=== PATIENT | female | born 1960 | race Caucasian/White ===

== ENCOUNTER 2017-10-13 14:08 | Emergency (ER) | payer OTHER, SELFPAY ==
[2017-10-13 14:23] VITALS: BP 182/94; PULSE 84; RESP 18; TEMP 36.7; O2SAT 98; BMI 31.1
--- NOTE | 2017-10-13 14:33 | XR_ITS ---
XR chest portable HISTORY: ITS.REASON: shortness of breath ORDERING PHYSICIAN: Dejon Flannery MD PATIENT AGE: 57 years COMPARISON: None available FINDINGS: The cardiomediastinal silhouette and pulmonary vascularity are within normal limits. The lungs are clear without infiltrates, suspicious nodules, or pleural effusions. No acute bony abnormalities. IMPRESSION: Negative chest, no acute finding
--- NOTE | 2017-10-13 14:43 | CT_ITS ---
CT head/brain wo con HISTORY: Altered mental status, altered level of consciousness, confusion with hypertension ITS.REASON: ams ORDERING PHYSICIAN: Dejon Flannery MD PATIENT AGE: 57 years COMPARISON: None TECHNIQUE: Axial images obtained without contrast. Brain and bone windows reviewed. FINDINGS: No midline shift, mass effect, intracranial hemorrhage, hydrocephalus, or extra-axial fluid collection is evident. The calvarium has an unremarkable appearance. No mastoid effusion. No sinus air-fluid levels.. IMPRESSION: Negative CT head without contrast. No acute finding.
[2017-10-13 14:46] LABS: Microscopic, Urine URINE MICROSCOPIC (MICROSCOPIC)
[2017-10-13 14:47] VITALS: BP 129/88; BP 154/93; BP 163/93; PULSE 68; PULSE 71; PULSE 87
[2017-10-13 14:48] LABS: Appearance,Urine CLEAR (Clear); Bilirubin,Urine Negative (Negative); Blood, Urine 1+ (Negative); Color,Urine YELLOW (Yellow); Glucose,Urine (UA) Negative (Negative); Ketones,Urine Negative (Negative); Leukocyte Esterase,Urine Negative (Negative); Nitrate,Urine Negative (Negative); PH,Urine 6.5 (5.0-8.5); Protein,Urine Negative (Negative); Specific Gravity, Urine <= 1.005 (1.005-1.030); Urobilinogen,Urine 0.2 EU/dl (0.2)
[2017-10-13 14:51] LABS: Basophils # 0.1 K/mm3 (0-0.2); Basophils % 0.4 % (0.1-2.0); Eosinophils # 1.1 K/mm3 (0.0-0.4); Eosinophils % 10.4 % (0.1-12.0); Hematocrit 42.6 % (37.0-47.0); Hemoglobin 13.6 g/dL (12.2-16.2); Lymphocytes # 2.4 K/mm3 (0.7-4.5); Mean Corpuscular HGB Conc 31.9 g/dL (31.8-35.4); Mean Corpuscular Hemoglobin 27.3 pg (27.0-31.2); Mean Corpuscular Volume 85.7 fl (81-99); Monocytes # 0.5 K/mm3 (0.1-1.0); Monocytes % 4.5 % (1.7-9.3); Neutrophils # 6.5 K/mm3 (1.8-7.8); Neutrophils % 61.7 % (37.0-80.0); Platelet Count 239 K/mm3 (142-424); Red Blood Count 4.97 M/mm3 (4.20-5.40); Red Cell Distribution Width 13.6 % (11.5-17.5); White Blood Count 10.5 K/mm3 (4.8-10.8)
[2017-10-13 14:55] LABS: Bacteria,Urine Trace /lpf; Squamous Epithelial Cell,Urine Occasional #/hpf (0-5); WBC,Urine Occasional #/hpf (0-3)
[2017-10-13 15:01] LABS: Alanine Aminotransferase 32 U/L (12-78); Albumin Level 4.1 gm/dL (3.4-5.0); Albumin/Globulin Ratio 1.1 (1.1-1.8); Alkaline Phosphatase 99 U/L (46-116); Anion Gap 11.2 mEq/L (5-15); Aspartate Amino Transferase 25 U/L (15-37); Bilirubin,Total 0.4 mg/dL (0.2-1.0); Blood Urea Nitrogen 15 mg/dL (7-18); Calcium 8.5 mg/dL (8.5-10.1); Carbon Dioxide 27 mmol/L (21.0-32.0); Chloride 106 mmol/L (98-107); Creatinine Clearance Estimated 115 mL/min (0-300); Creatinine,Serum 0.79 mg/dL (0.55-1.02); Estimated Glomerular Filt Rate 75 ml/min (>60); GFR (African American) 91 ML/MIN (>60); Globulin 3.8 gm/dl (1.3-3.2); Glucose 94 mg/dL (74-106); Potassium 4.2 mmoL/L (3.5-5.1); Sodium 140 mmol/L (136-145); Total Protein,Serum 7.9 gm/dL (6.4-8.2)
[2017-10-13 15:14] LABS: CKMB Relative Index 0.8 U/L (0-4.0); Creatine Kinase 132 U/L (26-192); Troponin I < 0.02 ng/ml (0.00-0.06)
--- NOTE | 2017-10-13 17:59 | HMH.EDWEAK ---
ED Disposition Clinical Impression: Orthostatic hypotension Disposition: Home, Self-Care Condition on Discharge: Good Instructions: DI for Orthostatic Hypotension Additional Instructions: Please increase your fluid intake, eat 3 regular meals per day, follow-up with 48 hours for mandatory reevaluation. If not better or unable to see PCP timely, please return promptly to this, same, emergency room for reevaluation. Referrals: Provider,Referral, [Primary Care Provider] - Time of Disposition: 18:00 - Critical Care Critical Care Time: No Attestation: On 10/13/17, the high probability of a clinically significant, sudden or life threatening deterioration of the following system(s) required my full and direct attention, intervention and personal management. The time I documented below is in addition to time spent performing reported procedures but includes the following listed in this critical care notation. Medical Decision Making - Medical Records Medical records reviewed: Yes: I reviewed the patient's medical records. Vital Signs: 10/13/17 14:23 10/13/17 14:47 10/13/17 18:12 Temperature 98.1 F 98.5 F Temperature Source Oral Oral Pulse Rate 82 Pulse Rate [Orthostatic Lying Right Brachial] 71 Pulse Rate [Orthostatic Sitting Right Brachial] 68 Pulse Rate [Orthostatic Standing Right Brachial] 87 Pulse Rate [Right Brachial] 84 Respiratory Rate 18 18 Blood Pressure 127/85 Blood Pressure [Orthostatic Lying Right Arm] 163/93 Blood Pressure [Orthostatic Sitting Right Arm] 154/93 Blood Pressure [Orthostatic Standing Right Arm] 129/88 Blood Pressure [Right Arm] 182/94 Blood Pressure Mean [Right Arm] 123 Blood Pressure Source Automatic Cuff Blood Pressure Source [Right Arm] Automatic Cuff Blood Pressure Position Sitting Blood Pressure Position [Right Arm] Sitting 02 Sat by Pulse Oximetry 98 Oxygen Delivery Method Room Air Room Air - Lab Data Lab results reviewed: Yes: I reviewed the patient's lab results. Lab Results 10/13/17 14:40: WBC 10.5, RBC 4.97, Hgb 13.6, Hct 42.6, MCV 85.7, MCH 27.3, MCHC 31.9, RDW 13.6, Plt Count 239, MPV 8.0, Neut % (Auto) 61.7, Lymph % (Auto) 23.0, [place] % (Auto) 4.5, Eos % (Auto) 10.4, Baso % (Auto) 0.4, Neut # (Auto) 6.5, Lymph # (Auto) 2.4, [place] # (Auto) 0.5, Eos # (Auto) 1.1 H, Baso # (Auto) 0.1 10/13/17 14:40: Sodium 140, Potassium 4.2, Chloride 106, Carbon Dioxide 27, Anion Gap 11.2, BUN 15, Creatinine 0.79, Estimated Creat Clear 115, Estimated GFR 75, Est GFR ( Amer) 91, Glucose 94, Calcium 8.5, Total Bilirubin 0.4, AST 25, ALT 32, Alkaline Phosphatase 99, Total Protein 7.9, Albumin 4.1, Globulin 3.8 H, Albumin/Globulin Ratio 1.1 10/13/17 14:40: Urine Color Yellow, Urine Appearance Clear, Urine pH 6.5, Ur Specific [place] <= 1.005, Urine Protein Negative, Urine Glucose (UA) Negative, Urine Ketones Negative, Urine Blood 1+, Urine Nitrate Negative, Urine Bilirubin Negative, Urine Urobilinogen 0.2, Ur Leukocyte Esterase Negative, Urine RBC 3-5, Urine WBC Occasional, Ur Squamous Epith Cells Occasional, Urine Bacteria Trace 10/13/17 14:40: Total Creatine Kinase 132, CK-MB (CK-2) 1.0, CK-MB (CK-2) Rel Index 0.8, Troponin I < 0.02 Result diagrams: 10/13/17 14:40 10/13/17 14:40 Orders (Tests/Meds): ED MEDICATIONS Discontinued Medications Generic Name Dose Route Start Last Admin Trade Name Freq PRN Reason Stop Dose Admin Sodium Chloride 1,000 mls @ 999 mls/hr 10/13/17 14:45 10/13/17 14:44 Sod Chloride 0.9% 1000ml Bag IV 10/13/17 15:45 999 mls/hr .Q1H1M JHONATAN Administration - Radiology Data #1 Image(s): Chest Image Reviewed: Yes I reviewed the patient's radiology results, Yes I reviewed the patient's radiology image, Yes I have reviewed radiologist's interpretation Preliminary Findings: Normal/NAD - ECG Data Tracing #1 I reviewed this ECG and interpreted as documented below: ECG normal with no acute: arrhythm
[2017-10-13 18:12] VITALS: BP 127/85; PULSE 82; RESP 18; TEMP 36.9; O2SAT 98
== END 2017-10-13 18:12 | disposition home or self-care (01) ==
PROVIDERS: Emergency Provider Emergency Medicine; Family Provider Family Medicine
DX: I95.1 Orthostatic hypotension (principal); R07.89 Other chest pain; R53.1 Weakness
CPT/HCPCS: 70450; 71045; 80053; 81001; 82550; 82553; 84484; 85025; 93005; 96365; 99283

== ENCOUNTER → 2017-10-21 08:43 | Outpatient (CLI) | payer OTHER, SELFPAY ==
--- NOTE | 2017-10-21 08:50 | US_ITS ---
US abdomen limited: INDICATION: Right upper quadrant pain with reflux and vomiting ITS.REASON: RT SIDED CHEST PAIN ORDERING PHYSICIAN: Mikal Saucedo MD PATIENT AGE: 57 years FINDINGS: PANCREAS: Unremarkable. No obvious mass or abnormal fluid collection. No ductal dilatation LIVER: There is a 1.4 cm hyperechoic lesion along the posterior aspect of the right hepatic lobe RIGHT KIDNEY: Unremarkable. Normal size and echogenicity. No hydronephrosis GALLBLADDER: No gallstones, gallbladder wall thickening, pericholecystic fluid, or biliary dilatation. IMPRESSION: 1. Negative gallbladder ultrasound. 2. Nonspecific 14 mm hyperechoic lesion of the right lobe of the liver. This may be better evaluated with CT without and with contrast.
== END ==
PROVIDERS: Family Provider Family Medicine; Visit Provider Family Medicine
DX: R07.9 Chest pain, unspecified (principal)
CPT/HCPCS: 76705

== ENCOUNTER → 2018-01-23 14:05 | Outpatient (CLI) | payer OTHER, SELFPAY ==
--- NOTE | 2018-01-23 14:06 | US_ITS ---
US breast LT complete Ordering Physician: Michael Martinez MD Patient Age: 57 years: Female HISTORY: ITS.REASON: f/u US of Left Breast Follow up ill-defined area left breast on previous ultrasound TECHNIQUE: Ultrasound left breast. Axillary survey COMPARISON :Previous ultrasound left breast 04/15/2017.. COMPLETE. LEFT BREAST: ULTRASOUND with axillary survey Survey of the entire breast was performed and shows areas of concern. Attention is directed to the 12 o'clock position. No unique features are seen here only. On the area previously questioned appears to be merely some slightly hypoechoic glandular tissue with no dominant mass nor significant cyst evident. Only a tiny thin cyst measuring measured 4.6 mm length mm is seen at 12 o'clock position otherwise. Not of concern . IMPRESSION: Today's ultrasound reveals no significant findings with no areas of concern. Recommend patient resume annual mammography scheduled with bilateral mammogram in 6 months to. . Suggest follow-up left breast ultrasound in 6 months to again evaluate the area previously questioned.. . BI-RADS Category: 2 Benign Finding(s) RECOMMENDED FOLLOW-UP: 6M - 6 MONTH FOLLOW-UP (A letter has been sent to the patient regarding results of the study.) Knee
== END ==
PROVIDERS: Family Provider Family Medicine; PCP Family Medicine; Visit Provider Nurse Practitioner Obstetrics & Gynecology
DX: R92.2 Inconclusive mammogram (principal)
CPT/HCPCS: 76641

== ENCOUNTER → 2018-01-28 10:06 | Outpatient (CLI) | payer OTHER, SELFPAY ==
[2018-01-28 11:39] LABS: Blood Urea Nitrogen 16 mg/dL (7-18); Creatinine,Serum 0.74 mg/dL (0.55-1.02); Estimated Glomerular Filt Rate 81 ml/min (>60); GFR (African American) 98 ML/MIN (>60)
== END ==
PROVIDERS: Visit Provider Family Medicine
DX: D37.6 Neoplasm of uncertain behavior of liver, gallbladder and bile ducts (principal)
CPT/HCPCS: 36415; 82565; 84520

== ENCOUNTER → 2018-01-30 10:03 | Outpatient (CLI) | payer OTHER, SELFPAY ==
--- NOTE | 2018-01-30 10:06 | CT_ITS ---
CT abdomen wo/w con Ordering Physician: Mikal Saucedo MD Patient Age: 57 years: Female HISTORY: ITS.REASON: NEOPLASM OF LIVER . Right upper quadrant pain. Hyperechoic area seen at posterior liver on recent ultrasound TECHNIQUE: Helical CT scanning performed abdomen only, pre and post 75 cc Isovue-370 IV contrast . Postcontrast scanning performed at 30 & 60 seconds post injection, with then 5 minute delayed after IV contrast administration.Oral contrast also utilized. Axial sagittal and coronal reconstructions performed on CT workstation. All CT scans at this facility used one or more dose reduction techniques , viz: automatic exposure control, ma/Kv adjustment per patient's size, (including targeted exam where dose matched to the indication; i.e. head); or iterative reconstruction technique COMPARISON : Ultrasound abdomen 10/21/2017 FINDINGS LIVER. There is a 14 mm height x1.4 mm in AP x 12 mm transverse ovoid low-density area at the medial spleen, just along margin of the IVC; at junction of caudate lobe & right lobe. This is best seen on the venous phase in all 3 planes. (Axial slice 27. Coronal 42 sagittal 41.) Only very minor marginal vascularity about its margin on the early phase images.. Also This area then appears to fills & becomes less evident, nearly isodense, on the 5 minute delayed image set.- These observations Consistent with benign hemangioma as well as ultrasound appearance . Thus CT and ultrasound findings strongly support benign hemangioma of the liver.-, The most common incidental lesion in middle-aged females. Spleen satisfactory. Pancreas unremarkable. No biliary ductal dilatation. Gallbladder unremarkable Adrenals unremarkable. Kidneys appear satisfactory. . Ureters unremarkable. No retroperitoneal findings Stomach. Generous wall thickness throughout the stomach. Upper normal thickness stomach most likely reflecting lack of distention. Only the abdomen imaged thus do not visualize the lower portions of bowel. Visualized Small bowel unremarkable. . Moderate stool at the right and transverse colon.. No bowel dilatation or obstruction. Oral contrast is moved through the small bowel into the right and transverse colon. Lung bases are clear. Heart normal size. Prominent focal spur off the posterior aspect of T12/L1. This is seen midline and to the left and does appear to abut, and mild efface the lower thoracic cord to the left. IMPRESSION: 1. CT & ultrasound findings are consistent with a Small 1.4 cm benign hemangioma at the medial aspect the liver.. Benign incidental feature. Perhaps Consider follow-up ultrasound in 6 -8 months to further ensure relative stability, particularly if RUQ symptoms persist 2. Slight generous wall thickness at stomach most likely reflecting lack of distention..
== END ==
PROVIDERS: Family Provider Family Medicine; PCP Family Medicine; Visit Provider Family Medicine
DX: D37.6 Neoplasm of uncertain behavior of liver, gallbladder and bile ducts (principal)
CPT/HCPCS: 74170; Q9967

== ENCOUNTER → 2019-03-22 10:27 | Outpatient (CLI) | payer OTHER, SELFPAY ==
--- NOTE | 2019-03-22 10:33 | XR_ITS ---
XR foot wt bearing LT 3V HISTORY: ITS.REASON: pain, mass on third toe ORDERING PHYSICIAN: Elen Bryson DPM PATIENT AGE: 59 years COMPARISON: None FINDINGS: There is moderate hallux valgus with mild osteoarthritic change of the first MTP joint with hypertrophy of the distal aspect of the first metatarsal and overlying soft tissues. No fracture or dislocation. No other significant anomalies. IMPRESSION: Hallux valgus with osteoarthritis of the first MTP joint and bunion formation
== END ==
PROVIDERS: PCP Family Medicine; Visit Provider Podiatrist
DX: M79.672 Pain in left foot (principal)
CPT/HCPCS: 73630

== ENCOUNTER → 2019-04-09 10:38 | Outpatient (CLI) | payer OTHER, SELFPAY ==
[2019-04-09 10:55] LABS: Blood Urea Nitrogen 18 mg/dL (7-18); Creatinine,Serum 0.94 mg/dL (0.55-1.02); Estimated Glomerular Filt Rate 61 ml/min (>60); GFR (African American) 74 ML/MIN (>60)
--- NOTE | 2019-04-09 10:55 | MR_ITS ---
MR foot LT wo/w con CLINICAL INDICATION: ITS.REASON: soft tissue mass third toe, neoplasm of uncertain behavior of scan of the toe, pain ORDERING PHYSICIAN: Elen Bryson DPM PATIENT AGE: 59 years Comparison: 03/22/2019 TECHNIQUE: Multiplanar multiecho sequences are performed without and with gadolinium enhancement. Additional thin section pre- and postenhanced sequences performed FINDINGS: Moderate hallux valgus with osteoarthritic change of the first MTP joint and bunion formation at the distal aspect of the first metatarsal. There is lateral displacement of the flexor hallucis longus tendon. Subarticular cystic changes are present at the distal aspect of the first metatarsal A marker is placed over the dorsal aspect of the distal phalanx of the third digit to yumi the area of clinical concern. This was removed on the post enhanced images to avoid causing any underlying artifact. No obvious soft tissue mass evident. No bone marrow edema or fluid collection. No abnormal enhancement. IMPRESSION: 1. No obvious soft tissue mass identified regarding the third digit. No abnormal fluid collections or evidence of osteomyelitis. 2. Hallux valgus with osteoarthritis and bunion formation at the first MTP
== END ==
PROVIDERS: Visit Provider Podiatrist
DX: D48.5 Neoplasm of uncertain behavior of skin (principal); M79.675 Pain in left toe(s)
CPT/HCPCS: 36415; 73720; 82565; 84520; A9576

== ENCOUNTER → 2020-04-05 08:03 | Outpatient (CLI) | payer OTHER, SELFPAY ==
[2020-04-05 12:23] LABS: Coronavirus 19 IgG Antibody Negative (Negative); Coronavirus 19 IgM Antibody Negative (Negative)
== END ==
PROVIDERS: Visit Provider Internal Medicine Gastroenterology
DX: Z03.818 Encounter for observation for suspected exposure to other biological agents ruled out (principal)
CPT/HCPCS: 36415; 86328

== ENCOUNTER 2020-04-07 10:52 | Day surgery (SDC) | payer OTHER, SELFPAY ==
[2020-04-03 14:35] VITALS: BMI 32.2
[2020-04-07] VITALS (7 sets, daily range): BP systolic 122–170; BP diastolic 75–84; PULSE 61–77; RESP 18; TEMP 36.3–36.8; O2SAT 96–98
--- NOTE | 2020-04-07 12:35 | HMH.ANESCL ---
[facility] Anesthesia Checklist - Patient Identification Patient Identification: Arm Band - Structural Data Admitted From: Home Planned Operative Procedure/s: colonoscopy Consent for Planned Operative Procedure(s) Verified: Yes Verified Documents: Surgical Consent, History and Physical - NPO Status Verified Time NPO: 00:00 - Additional verifications Anesthesia Reactions: No - Airway Assessment C-Spine Mobility Assessed: Yes (mp2) TMJ Mobility Assessed: Yes Dentition: Good Dentition - Neurological Assessment Level of Consciousness: Awake, Alert - Anesthesia Plan Anesthesia Risk discussed: Yes Anesthesia Plan: Verified ASA Class: II Anesthesia Type: MAC [facility] History I have reviewed the patient's past medical history: Yes Medical History: Reports:: Gastroesophageal Reflux Disease(GERD) Denies:: Cancer, Diabetes Mellitus Type 1, Diabetes Mellitus Type 2, Internal Pacemaker, MRSA, Seizures *Have you ever received a pneumonia vaccine?: No *Have you received a flu vaccine this season?: Yes Anesthesia experience/problems:: nac Other Surgeries: Yes: Colonoscopy, Diagnostic Lap. No: Pacemaker Amputation: No Fractures: No - *Social History Last grade of school completed: High school graduate Smoking Status: Never smoker Alcohol Intake: never Substance Use Type: denies use *Occupational Status:: employed Housing: house Household Members: spouse *Travel in the last 8 weeks: None Family Hx:: Cancer, Coronary Artery Disease, Diabetes, Heart Attack, Hyperlipidemia, Hypertension, Thyroid Disorder
--- NOTE | 2020-04-07 12:52 | HMH.PROC ---
[facility] Procedure Note Procedure Note:: Colonoscopy Procedure Report: Colonoscopy with cold snare polypectomy Endoscopist: Rashad Grier II, MD Referring physician: Mikal Saucedo MD Date of Procedure: April 07, 2020 Equipment: Olympus 180 variable stiffness pediatric colonoscope Sedation: MAC sedation Indication: Mrs. Weller is a 60-year-old female who is here for follow-up screening/surveillance colonoscopy secondary to a personal history of colon polyps. She did have a colonoscopy 9 years ago and had 2 polyp (adenomatous polyps) and was recommended to have repeat surveillance in 5 years. The patient does state that her paternal aunt had colon cancer in her late 60s. The patient does have intermittent but infrequent blood from internal hemorrhoids mostly on the tissue. She reports no abdominal pain, weight loss or change in bowel habits. Procedure: Prior to the procedure, a history and physical exam was performed, and patient's medications and allergies were reviewed. The risks, benefits and alternatives of the sedation and procedure were discussed with the patient. All questions were answered and informed consent was obtained. The patient was brought to the procedure room. Patient identification and proposed procedure were verified by the physician and the nurse. The patient was placed in a left lateral decubitus position and the scope was passed under direct vision. Throughout the procedure, the patient's blood pressure, pulse, and oxygen saturations were monitored continuously. The colonoscopy was accomplished without difficulty. The patient tolerated the procedure well. Findings: On digital rectal examination there was normal rectal tone. There were no external hemorrhoids. The colonoscope was introduced through the anal canal to the rectum and advanced to the cecum. The ileocecal valve and appendiceal orifice were identified. The scope was advanced a short distance into the ileum which appeared grossly normal. The scope was then withdrawn into the colon. There were 2 polyps in the cecum (3 and 5 mm), 2 polyps in the descending (3 and 7 mm) and one polyp in the sigmoid (4 mm). All of these 5 polyps were removed via cold snare polypectomy. There were a few scattered diverticuli throughout the descending and sigmoid colon (LEFT colon). The rectum itself was normal. Upon retroflexion within the rectum there were grade 1-2 internal hemorrhoids. The preparation was excellent throughout with [place] Preparation Score of 9. The cecal time was 12 minutes. Impression: 1. Colonic polyps x5 2. Mild left-sided diverticulosis 3. Grade 1-2 internal hemorrhoids Plan: I will follow up the polyp pathology and recommend repeat colonoscopy again in 5 years based upon the polyp histology. I would encourage fiber supplementation on a long-term daily maintenance basis.
== END 2020-04-07 13:48 | disposition home or self-care (01) ==
LOC: OUTP 10:53
PROVIDERS: PCP Family Medicine; Visit Provider Internal Medicine Gastroenterology
PROC: 0DJD8ZZ Inspection of Lower Intestinal Tract, Via Natural or Artificial Opening Endoscopic (ICD-10-PCS; CPT 45378; principal; 2020-04-07 12:00)
DX: Z12.11 Encounter for screening for malignant neoplasm of colon (principal); Z86.010 Personal history of colon polyps; K63.5 Polyp of colon; K57.30 Diverticulosis of large intestine without perforation or abscess without bleeding; K64.0 First degree hemorrhoids; K21.9 Gastro-esophageal reflux disease without esophagitis; Z80.9 Family history of malignant neoplasm, unspecified; Z83.3 Family history of diabetes mellitus; Z83.438 Family history of other disorder of lipoprotein metabolism and other lipidemia; Z82.49 Family history of ischemic heart disease and other diseases of the circulatory system; Z83.49 Family history of other endocrine, nutritional and metabolic diseases; Z79.899 Other long term (current) drug therapy
CPT/HCPCS: 45385

== ENCOUNTER 2020-05-25 13:36 | Emergency (ER) | payer OTHER, SELFPAY ==
--- NOTE | 2020-05-25 13:44 | XR_ITS ---
PROCEDURE: XR WRIST LT MIN 3V CLINICAL INDICATION: wrist pain due to picking up heavy object at home COMPARISON: No exams were available for comparison FINDINGS: There are mild osteoarthritic changes at the 1st metacarpal-carpal joint. A small calcific density is present along the dorsal aspect of the 1st metacarpal-carpal joint and could be related to some periarticular ossification or an avulsion injury or small spur. No other significant anomalies are evident. IMPRESSION: Small calcific density at the 1st metacarpal-carpal joint as described above with minimal osteoarthritic change. Dictated by: Chaz Ramos MD 05/25/2020 14:59 Chaz Ramos MD in [place] 05/25/2020 14:59
[2020-05-25 13:59] VITALS: BP 166/90; PULSE 76; RESP 16; TEMP 36.7; O2SAT 96; BMI 32.6
[2020-05-25 14:07] VITALS: BP 166/90; PULSE 76; RESP 16; TEMP 36.7; O2SAT 96
--- NOTE | 2020-05-25 14:09 | HMH.EDUTC ---
[facility] Disposition Clinical Impression: Wrist sprain Qualifiers: Encounter type: initial encounter Laterality: left Qualified Code(s): S63.502A - Unspecified sprain of left wrist, initial encounter Disposition: Home, Self-Care Condition on Discharge: Good Instructions: Wrist Sprain, DI for Wrist Sprain, How To Perform RICE (Rest, Ice, Compress, Elevate) Additional Instructions: *RICE, Rest the extremity, Ice 15-20 minutes 3-4 times daily, Compress- wear the jaleel wrap as discussed as much as possible to help reduce swelling and pain, Elevate the extremity when at rest *Jaleel wrap/Wrist brace is for support and help control swelling, use it except in the shower. Be sure that is not to tight but not to loose either *Elevate when resting *Ibuprofen every 6-8 hours as needed for pain an inflammation. If need something more can take Tylenol in between doses of Ibuprofen to help Immediately follow up with your family doctor for new or worsening of symptoms, or no noticeable improvement over the next 3-5 days Follow up with Family Doctor if you continue to have pain and discomfort Return if needed Call back to the [facility] later this evening to see if the Radiologist has read your xray and the result Straight to ER if any life threatening symptoms Referrals: Mikal Saucedo MD [Primary Care Provider] - As needed Time of Disposition: 14:11 Medical Decision Making - Pedro Inquiry Pt receiving controlled substance: No Pedro was queried for this patient: No Vital Signs: 05/25/20 13:59 05/25/20 14:07 Temperature 98.0 F 98.0 F Temperature Source Oral Pulse Rate 76 Pulse Rate [Left] 76 Respiratory Rate 16 16 Blood Pressure 166/90 H Blood Pressure [Right Arm] 166/90 H Blood Pressure Mean [Right Arm] 115 Blood Pressure Source [Right Arm] Automatic Cuff Blood Pressure Position [Right Arm] Standing 02 Sat by Pulse Oximetry 96 Oxygen Delivery Method Room Air - Radiology Data #1 Image(s): Wrist Image Reviewed: Yes I reviewed the patient's radiology image Preliminary Findings: No Fracture Seen [facility] HPI - General Stated complaint: lt wrist pain, ao 05/25/20 Time Seen by Provider: 05/25/20 14:00 Mode of Arrival: Ambulatory Source of Information: Patient Limitations: No Limitations Description of Symptoms (Recalled from Triage Doc. by RN): Pt c/o of left wrist pain. Pt was cleaning out the basement and picked something up and she heard a pop. HEENT Symptoms (Recalled from RN notes): No Resp Symptoms (Recalled from RN notes): No Skin Symptoms (Recalled from RN notes): Yes MS Symptoms (Recalled from RN notes): No Functional Status (Recalled from RN notes): stable - History of Present Illness Provider Complaint: Patient states that she was cleaning out her basement with a shovel and dust olivera and when she lifted it over to dump it in the garbage she felt a sharp pain in her left wrist States that ever since she has been having pain and tenderness ever since - Related Data Home Medications Medication Instructions Recorded Confirmed pantoprazole 40 mg tablet,delayed 40 mg PO DAILY #30 tab 03/22/19 04/07/20 release Triamcinolone Acetonide [Nasacort] 16.9 ml NS DAILY 04/03/20 04/07/20 Allergies Allergy/AdvReac Type Severity Reaction Status Date / Time No Known Allergies Allergy Verified 05/25/20 14:14 - Worker's Comp Is this a Worker's Comp case?: No Is this an H Worker's Comp?: No Is this a [place] Worker's Comp?: No [facility] History - Hepatitis A Screen Drug use history?: No High risk sexual behaviors?: No History of sexually transmitted infection?: No Currently employed?: No Childcare worker?: No Do you have indoor plumbing?: Yes Do you have electricity?: Yes Attestation statement:: This patient has been screened for Hepatitis A risk factors. I have reviewed the patient's past medical history: Yes Medical History: Reports:: Gastroesophageal Reflux Disease(GERD) Denies:: Cancer, Diabetes M
== END 2020-05-25 14:14 | disposition home or self-care (01) ==
PROVIDERS: Emergency Provider Nurse Practitioner; PCP Family Medicine
DX: S63.502A Unspecified sprain of left wrist, initial encounter (principal); X50.0XXA Overexertion from strenuous movement or load, initial encounter; Y92.019 Unspecified place in single-family (private) house as the place of occurrence of the external cause; K21.9 Gastro-esophageal reflux disease without esophagitis; Z79.899 Other long term (current) drug therapy
CPT/HCPCS: 73110; 99201

== ENCOUNTER 2020-08-30 10:44 | Emergency (ER) | payer OTHER, SELFPAY ==
[2020-08-30 10:46] VITALS: BP 168/84; PULSE 80; RESP 18; TEMP 37.2; O2SAT 94; BMI 30.7
[2020-08-30 11:04] VITALS: BMI 30.7
--- NOTE | 2020-08-30 11:05 | XR_ITS ---
PROCEDURE: XR CHEST PORTABLE CLINICAL HISTORY: covid with cough COMPARISON: CR CXR1VP XR chest portable from 10/13/2017 FINDINGS: This is a somewhat poor inspiratory effort however there are bilateral perihilar ill-defined opacities slightly more diffuse left side than right. The upper lung bennett are clear, the lung bases are grossly clear with somewhat poorly evaluated due to poor inspiration. Cardiac size is normal vascularity is normal and there is no pleural fluid. IMPRESSION: Bilateral somewhat ill-defined opacities with somewhat of a ground-glass appearance left-side findings are certainly consistent Covid pneumonia Dictated by: Dr. Dejon Garces MD 08/30/2020 11:30 Dr. Dejon Garces MD in [place] 08/30/2020 11:30
--- NOTE | 2020-08-30 11:12 | HMH.EDGENADL ---
ED Disposition Clinical Impression: COVID-19 Pneumonia Qualifiers: Pneumonia type: due to unspecified organism Laterality: bilateral Lung location: unspecified part of lung Qualified Code(s): J18.9 - Pneumonia, unspecified organism Disposition: Home, Self-Care Condition on Discharge: Good Instructions: Pneumonia-Adult Additional Instructions: Follow-up with PCP. Take antibiotics as prescribed. Take Tylenol/ibuprofen as needed for pain or fevers. Advised to return to emergency department if you start having worsening of difficulty breathing despite treatment. Prescriptions: Azithromycin [Z-Yoel 250mg Tab*] 250 mg PO UD DOSE PK #6 tab Transmission Status: Pending to [facility] [employer] Referrals: Mikal Saucedo MD [Primary Care Provider] - - Critical Care Critical Care Time: No Attestation: On , the high probability of a clinically significant, sudden or life threatening deterioration of the following system(s) required my full and direct attention, intervention and personal management. The time I documented below is in addition to time spent performing reported procedures but includes the following listed in this critical care notation. Medical Decision Making - Medical Records Medical records reviewed: Yes: I reviewed the patient's medical records. - Pedro Inquiry Pt receiving controlled substance: No Vital Signs: 08/30/20 10:46 08/30/20 11:16 Temperature 99.0 F Temperature Source Oral Pulse Rate [Right] 80 80 Respiratory Rate 18 22 Blood Pressure [Right Arm] 168/84 H 150/90 H Blood Pressure Mean [Right Arm] 112 110 Blood Pressure Source [Right Arm] Automatic Cuff Automatic Cuff Blood Pressure Position [Right Arm] Sitting Sitting 02 Sat by Pulse Oximetry 94 L 95 Oxygen Delivery Method Room Air - Lab Data Lab Results 08/30/20 10:50: WBC 4.9, RBC 4.84, Hgb 13.4, Hct 40.6, MCV 83.9, MCH 27.6, MCHC 32.9, RDW 14.7, Plt Count 167, MPV 7.9, Neut % (Auto) 77.3, Lymph % (Auto) 18.7, [place] % (Auto) 3.2, Eos % (Auto) 0.6, Baso % (Auto) 0.2, Neut # (Auto) 3.8, Lymph # (Auto) 0.9, [place] # (Auto) 0.2, Eos # (Auto) 0.0, Baso # (Auto) 0.0 08/30/20 10:50: Sodium 138, Potassium 3.7, Chloride 101, Carbon Dioxide 30, Anion Gap 10.7, BUN 11, Creatinine 0.70, Estimated Creat Clear 124, Estimated GFR 85, Est GFR ( Amer) 103, Glucose 106 H, Calcium 8.6, Total Bilirubin 0.6, AST 34, ALT 35, Alkaline Phosphatase 85, Total Protein 7.9, Albumin 4.3, Globulin 3.6 H, Albumin/Globulin Ratio 1.2 08/30/20 10:50: D-Dimer 0.85 08/30/20 10:50: Procalcitonin 0.077 08/30/20 11:05: Lactate 0.7 Result diagrams: 08/30/20 10:50 08/30/20 10:50 Orders (Tests/Meds): ORDERS Category Date Time Status Covid-19 IgG/IgM ([facility]) Stat Lab 08/30/20 10:50 Received Blood Culture Stat Micro 08/30/20 10:50 Received Medical Decision Narrative: 60-year-old female who presents to the emergency department for evaluation of shortness of air. Hemodynamically stable and nontoxic in appearance upon arrival. Maintaining oxygen saturations greater than 93% on room air. Patient recently diagnosed with COVID-19 8 days ago, but has been significantly worsening in symptoms over the past 2 days. Differential diagnosis includes but is not limited to worsening viral illness, pneumonia, pulmonary embolism, pneumothorax, less likely myocardial infarction. Obtained including CBC, CMP, procalcitonin, D-dimer, and lactate. Obtained EKG which was personally reviewed and showed no acute ST elevation, ST depression, or T wave inversions concerning for ACS at this time with normal sinus rhythm. Obtained chest x-ray which was personally reviewed and showed bilateral patchy opacifications concerning for Covid pneumonia versus atypical pneumonia. Labs reviewed and within normal limits with no significant leukocytosis and negative procalcitonin. Negative D-dimer. Normal lactate. Provided patient with prescription for azithromycin to start as an outpat
[2020-08-30 11:16] VITALS: BP 150/90; PULSE 80; RESP 22; O2SAT 95
--- NOTE | 2020-08-30 11:23 | ECG_ITS ---
APPROVED REPORT Exam: Resting ECG HR:78 bpm ECG Measurements Heart Rate 78 AXES WY 166 P 39 QRSd 90 QRS -22 QT 386 T 25 QTc 440 Conclusion Normal sinus rhythm Normal ECG Electronically signed by : Landon Qiu, 08/31/2020 14:29:21
[2020-08-30 11:33] LABS: Basophils % 0.2 % (0.1-2.0); Eosinophils % 0.6 % (0.1-12.0); Hematocrit 40.6 % (37.0-47.0); Hemoglobin 13.4 g/dL (12.2-16.2); Lymphocytes # 0.9 K/mm3 (0.7-4.5); Lymphocytes % 18.7 % (10-50); Mean Corpuscular HGB Conc 32.9 g/dL (31.8-35.4); Mean Corpuscular Hemoglobin 27.6 pg (27.0-31.2); Mean Corpuscular Volume 83.9 fl (81-99); Mean Platelet Volume 7.9 fl (7.4-10.4); Monocytes # 0.2 K/mm3 (0.1-1.0); Monocytes % 3.2 % (1.7-9.3); Neutrophils # 3.8 K/mm3 (1.8-7.8); Neutrophils % 77.3 % (37.0-80.0); Platelet Count 167 K/mm3 (142-424); Red Blood Count 4.84 M/mm3 (4.20-5.40); Red Cell Distribution Width 14.7 % (11.5-17.5); White Blood Count 4.9 K/mm3 (4.8-10.8)
[2020-08-30 11:34] LABS: Alanine Aminotransferase 35 U/L (12-78); Albumin Level 4.3 g/dl (3.5-5.0); Albumin/Globulin Ratio 1.2 (1.1-1.8); Alkaline Phosphatase 85 U/L (38-126); Anion Gap 10.7 mEq/L (5-15); Aspartate Amino Transferase 34 U/L (14-36); Bilirubin,Total 0.6 mg/dl (0.2-1.3); Blood Urea Nitrogen 11 mg/dl (7-17); Calcium 8.6 mg/dl (8.4-10.2); Carbon Dioxide 30 mmol/L (22.0-30.0); Chloride 101 mmol/L (98-107); Creatinine Clearance Estimated 124 mL/min (50-200); Estimated Glomerular Filt Rate 85 ml/min (>60); GFR (African American) 103 ML/MIN (>60); Globulin 3.6 g/dL (1.3-3.2); Glucose 106 mg/dl (74-100); Potassium 3.7 mmoL/L (3.5-5.1); Sodium 138 mmol/L (136-145); Total Protein,Serum 7.9 g/dl (6.3-8.2)
[2020-08-30 11:38] LABS: Lactic Acid 0.7 mmol/L (0.7-2.1)
[2020-08-30 11:38] LABS: D-Dimer 0.85 ug/mL (0.15-8.0)
[2020-08-30 11:51] LABS: Procalcitonin 0.077 ng/mL (0.0-2.0)
[2020-08-30 12:38] VITALS: BP 166/93; PULSE 74; RESP 20; TEMP 37.3; O2SAT 91
[2020-08-30 13:07] LABS: Coronavirus 19 IgG Antibody Negative (Negative); Coronavirus 19 IgM Antibody Negative (Negative)
== END 2020-08-30 12:41 | disposition home or self-care (01) ==
PROVIDERS: Emergency Provider Emergency Medicine; PCP Family Medicine
DX: J12.81 Pneumonia due to SARS-associated coronavirus (principal); K21.9 Gastro-esophageal reflux disease without esophagitis; Z79.899 Other long term (current) drug therapy
CPT/HCPCS: 71045; 80053; 83605; 84145; 85025; 85378; 86328; 87040; 93005; 99283

== ENCOUNTER 2020-09-01 17:23 | Inpatient (IN) | payer OTHER, SELFPAY ==
--- NOTE | 2020-09-01 17:28 | XR_ITS ---
PROCEDURE: XR CHEST PORTABLE CLINICAL HISTORY: SOB, covid COMPARISON: CR [id number] XR chest portable from 10/13/2017 CR XR CHEST PORTABLE from 08/30/2020 FINDINGS: This is a poor inspiration. Minimal ill-defined bilateral perihilar opacities are seen but showing interval improvement from the previous study. The upper lung bennett remain clear. Cardiac size is likely normal considering the poor inspiration. There is no obvious pleural fluid on either side. IMPRESSION: Interval improvement with resolving bilateral ill-defined perihilar infiltrates Dictated by: Dr. Dejon Garces MD 09/02/2020 08:01 Dr. Dejon Garces MD in [place] 09/02/2020 08:01
[2020-09-01 17:35] VITALS: BP 135/78; PULSE 95; RESP 18; TEMP 37.6; O2SAT 91; BMI 30.9
[2020-09-01 18:34] LABS: Basophils % 0.3 % (0.1-2.0); Eosinophils % 0.4 % (0.1-12.0); Hematocrit 38.9 % (37.0-47.0); Hemoglobin 12.7 g/dL (12.2-16.2); Lymphocytes % 12.8 % (10-50); Mean Corpuscular HGB Conc 32.6 g/dL (31.8-35.4); Mean Corpuscular Hemoglobin 26.8 pg (27.0-31.2); Mean Corpuscular Volume 82.3 fl (81-99); Monocytes # 0.4 K/mm3 (0.1-1.0); Monocytes % 4.8 % (1.7-9.3); Neutrophils # 6.2 K/mm3 (1.8-7.8); Neutrophils % 81.6 % (37.0-80.0); Platelet Count 202 K/mm3 (142-424); Red Blood Count 4.73 M/mm3 (4.20-5.40); Red Cell Distribution Width 14.6 % (11.5-17.5); White Blood Count 7.6 K/mm3 (4.8-10.8)
[2020-09-01 18:51] LABS: Alanine Aminotransferase 28 U/L (12-78); Albumin/Globulin Ratio 1.2 (1.1-1.8); Alkaline Phosphatase 75 U/L (38-126); Anion Gap 11.8 mEq/L (5-15); Aspartate Amino Transferase 34 U/L (14-36); Bilirubin,Total 0.9 mg/dl (0.2-1.3); Blood Urea Nitrogen 17 mg/dl (7-17); Calcium 8.5 mg/dl (8.4-10.2); Carbon Dioxide 26 mmol/L (22.0-30.0); Chloride 101 mmol/L (98-107); Creatinine Clearance Estimated 145 mL/min (50-200); Estimated Glomerular Filt Rate 102 ml/min (>60); GFR (African American) 123 ML/MIN (>60); Globulin 3.4 g/dL (1.3-3.2); Glucose 101 mg/dl (74-100); Potassium 3.8 mmoL/L (3.5-5.1); Sodium 135 mmol/L (136-145); Total Protein,Serum 7.4 g/dl (6.3-8.2)
--- NOTE | 2020-09-01 19:08 | PC.NURSE ---
dr dylon marie
--- NOTE | 2020-09-01 19:08 | HMH.EDPSOB ---
ED Disposition Clinical Impression: COVID-19, Shortness of breath Disposition: Admitted as Observation Condition on Discharge: Good Referrals: Mikal Saucedo MD [Primary Care Provider] - - Critical Care Critical Care Time: No Attestation: On 09/01/20, the high probability of a clinically significant, sudden or life threatening deterioration of the following system(s) required my full and direct attention, intervention and personal management. The time I documented below is in addition to time spent performing reported procedures but includes the following listed in this critical care notation. Medical Decision Making - Pedro Inquiry Pt receiving controlled substance: No Vital Signs: 09/01/20 17:35 Temperature 99.6 F Temperature Source Oral Pulse Rate [Radial] 95 H Respiratory Rate 18 Blood Pressure [Right Arm] 135/78 Blood Pressure Mean [Right Arm] 97 Blood Pressure Source [Right Arm] Automatic Cuff Blood Pressure Position [Right Arm] Sitting 02 Sat by Pulse Oximetry 91 L Oxygen Delivery Method Room Air - Lab Data Lab Results 09/01/20 18:20: WBC 7.6 D, RBC 4.73, Hgb 12.7, Hct 38.9, MCV 82.3, MCH 26.8 L, MCHC 32.6, RDW 14.6, Plt Count 202, MPV 9.0, Neut % (Auto) 81.6 H, Lymph % (Auto) 12.8, [place] % (Auto) 4.8, Eos % (Auto) 0.4, Baso % (Auto) 0.3, Neut # (Auto) 6.2, Lymph # (Auto) 1.0, [place] # (Auto) 0.4, Eos # (Auto) 0.0, Baso # (Auto) 0.0 09/01/20 18:20: Sodium 135 L, Potassium 3.8, Chloride 101, Carbon Dioxide 26, Anion Gap 11.8, BUN 17 D, Creatinine 0.60, Estimated Creat Clear 145, Estimated GFR 102, Est GFR ( Amer) 123, Glucose 101 H, Calcium 8.5, Total Bilirubin 0.9, AST 34, ALT 28, Alkaline Phosphatase 75, Total Protein 7.4, Albumin 4.0, Globulin 3.4 H, Albumin/Globulin Ratio 1.2 Result diagrams: 09/01/20 18:20 09/01/20 18:20 Orders (Tests/Meds): ORDERS Category Date Time Status CXR --portable [XR chest portable] Stat Exams 09/01/20 17:28 Taken Comprehensive Metabolic Panel Stat Lab 09/01/20 18:20 Results Troponin I Stat Lab 09/01/20 18:20 Results - Radiology Data #1 Image(s): Chest Image Reviewed: Yes I reviewed the patient's radiology image Preliminary Findings: Normal/NAD Medical Decision Narrative: 60yo F on day 10 of Covid evaluated for shortness of breath and continued malaise. Labs are unremarkable, her chest x-ray unremarkable. Patient is requiring 2 L nasal cannula for comfort at this time to maintain O2 sats greater than 92%. Discussed case with Dr. Saucedo, and he agrees to admit the patient for further management and treatment at this time. Pediatric SOB HPI - General Chief Complaint: Shortness of Breath/Dyspnea Stated Complaint: + Covid-19 with low O2 Time Seen by Provider: 09/01/20 17:25 Mode of Arrival: Ambulatory Limitations: No Limitations Description of Symptoms (Recalled from ER Triage Doc. by RN): Diagnosed with COVID on the 22 of August. States she was told to return if her O2 sats decrease. O2 at home was in the mid 80s. - History of Present Illness HPI Narrative: 60yo F that tested positive on 22 August for Covid presents to the emergency department secondary to shortness of breath and continued feeling poorly. Reports poor appetite. Denies additional fever. Reports minor shortness of breath. Does not smoke or use inhalers. Patient denies taking any medication other than allergy medication. MD complaint: cough, fever - Related Data Immunizations UTD: Yes Home Medications Medication Instructions Recorded Confirmed pantoprazole 40 mg tablet,delayed 40 mg PO DAILY #30 tab 03/22/19 08/30/20 release Triamcinolone Acetonide [Nasacort] 16.9 ml NS DAILY 04/03/20 08/30/20 Previous Rx's Medication Instructions Recorded Azithromycin [Z-Yoel 250mg Tab*] 250 mg PO UD DOSE PK #6 tab 08/30/20 Allergies Allergy/AdvReac Type Severity Reaction Status Date / Time No Known Allergies Allergy Verified 08/30/20 11:
[2020-09-01 19:12] LABS: Troponin I < 0.01 ng/ml (0.00-0.034)
--- NOTE | 2020-09-01 19:14 | PC.NURSE ---
Dr Manzanares spoke with dr Saucedo for admission
--- NOTE | 2020-09-01 19:21 | PC.NURSE ---
at bedside talking to patient. reswab for covid testing
[2020-09-01 19:36] LABS: Adenovirus,PCR Not Detected (NotDetected); Bordetella Pertussis Not Detected (NotDetected); Chlamydophila Pneumoniae, PCR Not Detected (NotDetected); Coronavirus 229E Not Detected (NotDetected); Coronavirus NL63 Not Detected (NotDetected); Coronavirus OC43 Not Detected (NotDetected); Coronovirus HKU1,PCR Not Detected (NotDetected); Human Metapneumovirus Not Detected (NotDetected); Influenza A, PCR Not Detected (NotDetected); Influenza AH1, 2009 Not Detected (NotDetected); Influenza AH1, PCR Not Detected (NotDetected); Influenza AH3,PCR Not Detected (NotDetected); Influenza B, PCR Not Detected (NotDetected); Mycoplasma Pneumoniae, PCR Not Detected (NotDetected); Parainfluenza 1, PCR Not Detected (NotDetected); Parainfluenza 2, PCR Not Detected (NotDetected); Parainfluenza 3, PCR Not Detected (NotDetected); Parainfluenza 4, PCR Not Detected (NotDetected); Respiratory Syncytial Virus Not Detected (NotDetected); Rhinovirus/Enterovirus Not Detected (NotDetected)
[2020-09-01 19:40] LABS: Coronavirus 19 IgG Antibody Positive (Negative); Coronavirus 19 IgM Antibody Negative (Negative)
--- NOTE | 2020-09-01 21:29 | PC.NURSE ---
patient admitted to 265
[2020-09-01 21:47] VITALS: RESP 22; O2SAT 93
[2020-09-01 22:05] LABS: Coronavirus 19, PCR Detected (NotDetected)
[2020-09-01 22:14] VITALS: BP 138/72; PULSE 93; RESP 18; TEMP 37.6; O2SAT 92
[2020-09-01 22:35] VITALS: BP 149/81; PULSE 85; RESP 22; TEMP 36.6; O2SAT 93
[2020-09-01 22:45] VITALS: BMI 31.2
[2020-09-02] VITALS (7 sets, daily range): BP systolic 138–152; BP diastolic 45–85; PULSE 57–78; RESP 16–20; TEMP 35.7–36.8; O2SAT 84–97
--- NOTE | 2020-09-02 04:51 | PC.NURSE ---
Pt is A&Ox4 and has ambulated to the 2x this shift and tolerated poor d/t SOA on exertion and desat post ambulation that required increase in O2. Pt has had a dry, persistent cough. Pt educated on the need for a sputum sample and collection process, specimen cup at bedside. Pt was increased from 2LPM NC to 3LPM after ambulation caused pt to desast to 86% on 2LPM. Room air sat was 84% this shift. Pt has also c/o pain to upper back/between shoulders. Pt reports it eases up when changing position. Lungs clear anteriorly and diminished bases. ABD is soft, non-tender and hypoactive bowel sounds. Pt reports she has not ate well this week and yesterday vomited crackers and water. Pt reports she has not ate well d/t inappetence and and c/o food tastes bad . Last BM was 08/29/20. No edema or skin issues noted. Pulses 2+, [employer] WNL, and no cyanosis noted. Pt has rested intermittently t/o the night. VSS, call light within reach and pt has called out appropriately.
--- NOTE | 2020-09-02 06:32 | PC.NURSE ---
IS was given to pt at the start of shift, educated on use and best @ 750 t/o shift. Pt had a very persistent cough during use and after.
[2020-09-02 07:22] LABS: Basophils % 0.3 % (0.1-2.0); Eosinophils % 0.2 % (0.1-12.0); Hematocrit 36.9 % (37.0-47.0); Lymphocytes # 1.2 K/mm3 (0.7-4.5); Lymphocytes % 17.4 % (10-50); Mean Corpuscular HGB Conc 32.6 g/dL (31.8-35.4); Mean Corpuscular Hemoglobin 26.8 pg (27.0-31.2); Mean Corpuscular Volume 82.4 fl (81-99); Mean Platelet Volume 8.9 fl (7.4-10.4); Monocytes # 0.3 K/mm3 (0.1-1.0); Monocytes % 4.7 % (1.7-9.3); Neutrophils # 5.2 K/mm3 (1.8-7.8); Neutrophils % 77.4 % (37.0-80.0); Platelet Count 186 K/mm3 (142-424); Red Blood Count 4.48 M/mm3 (4.20-5.40); Red Cell Distribution Width 14.6 % (11.5-17.5); White Blood Count 6.7 K/mm3 (4.8-10.8)
[2020-09-02 07:26] LABS: Chloride 103 mmol/L (98-107); Potassium 3.7 mmoL/L (3.5-5.1); Sodium 136 mmol/L (136-145)
[2020-09-02 07:28] LABS: Blood Urea Nitrogen 18 mg/dl (7-17); Creatinine Clearance Estimated 147 mL/min (50-200); Estimated Glomerular Filt Rate 102 ml/min (>60); GFR (African American) 123 ML/MIN (>60)
[2020-09-02 07:29] LABS: Anion Gap 12.7 mEq/L (5-15); Calcium 8.1 mg/dl (8.4-10.2); Carbon Dioxide 24 mmol/L (22.0-30.0); Glucose 84 mg/dl (74-100)
--- NOTE | 2020-09-02 08:39 | P.CONPHA_ITS ---
[facility] VTE Monitoring - Patient Demographics Admission date: 09/01/20 Report Date: 09/02/20 Time: 08:39 Allergies/Adverse Reactions: Patient Allergies No Known Allergies Allergy (Verified 08/30/20 11:39) Height: 1.73 m Weight: 93.168 kg Patient Problems: Current Active Problems COVID-19 (Acute) Shortness of breath (Acute) - VTE Risk Labs: VTE Related Lab Results Hgb 12.0 g/dL (12.2-16.2) L 09/02/20 06:15 Hct 36.9 % (37.0-47.0) L 09/02/20 06:15 Plt Count 186 K/mm3 (142-424) 09/02/20 06:15 BUN 18 mg/dl (7-17) H 09/02/20 06:15 Creatinine 0.60 mg/dl (0.52-1.04) 09/02/20 06:15 Estimated Creat Clear 147 mL/min (50-200) 09/02/20 06:15 VTE Score: 6 VTE Risk Level: Moderate Risk - Prophylaxis VTE Prophylaxis Ordered?: Yes Types of VTE Prophylaxis: IPCS Thigh High, Pharmacological Location of Applied Device: Bilateral Lower Extremeties Pharmacologic Type: Enoxaparin
--- NOTE | 2020-09-02 08:53 | HMH.HP ---
*Admission Date: 09/01/20 *Chief complaint: Shortness of breath *History of present illness: Patient is a 60 year old female who presented to [facility] ER with a 5 day history of generalized malaise, body aches and shortness of breath. 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 She states on 08/21 she had minimal nasal congested and tested positive that day. She had no other symptoms of Covid for the next 5 days. She then began having numerous symptoms and came to [facility] [place] and was told she had pneumonia and was treated with Zithromax. She continued to worsen and came back to the ER for another evaluation last night. [facility] History I have reviewed the patient's past medical history: Yes Medical History: Reports:: Gastroesophageal Reflux Disease(GERD) Denies:: Cancer, Diabetes Mellitus Type 1, Diabetes Mellitus Type 2, Internal Pacemaker, MRSA, Seizures *Have you ever received a pneumonia vaccine?: No *Have you received a flu vaccine this season?: Yes Other Surgeries: Yes: Colonoscopy (5 polyps removed), Diagnostic Lap. No: Pacemaker Amputation: No Fractures: No - *Social History Last grade of school completed: Some college Smoking Status: Never smoker Alcohol Intake: current Alcohol Intake Frequency:: holidays/special occasions only Substance Use Type: denies use *Occupational Status:: employed Housing: house Household Members: spouse *Travel in the last 8 weeks: None Family Hx:: Coronary Artery Disease, Diabetes, Hyperlipidemia, Hypertension, Tuberculosis, Other Review of Systems - Constitutional Reports body ache(s), Reports fever(s) - Eyes Denies change in vision - ENT Denies change in voice - *Cardiovascular Denies chest pain - *Respiratory Reports cough - *Gastrointestinal Denies abdominal pain - *Genitourinary Denies painful urination - *Musculoskeletal Reports joint pain - Integumentary/Breasts Denies rash - *Neurologic Denies confusion Meds Home Medications Medication Instructions Recorded Confirmed Type pantoprazole 40 mg tablet,delayed 40 mg PO DAILY #30 tab 03/22/19 09/01/20 History release Triamcinolone Acetonide [Nasacort] 1 spray NS DAILY 04/03/20 09/02/20 History Azithromycin [Z-Yoel 250mg Tab*] 250 mg PO DIRECTED 09/01/20 09/02/20 History Allergies Allergy/AdvReac Type Severity Reaction Status Date / Time No Known Allergies Allergy Verified 08/30/20 11:39 Exam Vital signs and Labs for Last 24 Hours: Temp Pulse Resp BP Pulse Ox 98.3 F 78 20 146/71 H 84 L 09/02/20 04:00 09/02/20 04:00 09/02/20 04:00 09/02/20 04:00 09/02/20 04:30 Laboratory Results - last 24 hr 09/01/20 18:20: WBC 7.6 D, RBC 4.73, Hgb 12.7, Hct 38.9, MCV 82.3, MCH 26.8 L, MCHC 32.6, RDW 14.6, Plt Count 202, MPV 9.0, Neut % (Auto) 81.6 H, Lymph % (Auto) 12.8, [place] % (Auto) 4.8, Eos % (Auto) 0.4, Baso % (Auto) 0.3, Neut # (Auto) 6.2, Lymph # (Auto) 1.0, [place] # (Auto) 0.4, Eos # (Auto) 0.0, Baso # (Auto) 0.0 09/01/20 18:20: Sodium 135 L, Potassium 3.8, Chloride 101, Carbon Dioxide 26, Anion Gap 11.8, BUN 17 D, Creatinine 0.60, Estimated Creat Clear 145, Estimated GFR 102, Est GFR ( Amer) 123, Glucose 101 H, Calcium 8.5, Total Bilirubin 0.9, AST 34, ALT 28, Alkaline Phosphatase 75, Troponin I < 0.01, Total Protein 7.4, Albumin 4.0, Globulin 3.4 H, Albumin/Globulin Ratio 1.2 09/01/20 18:20: SARS-CoV-2 IgG Ab (Rapid) Positive A, SARS-CoV-2 IgM Ab (Rapid) Negative 09/01/20 19:25: Chlamy pneumoniae PCR Not detected, Adenovirus (PCR) Not detected, B. pertussis DNA (PCR) Not detected, Coronavirus OC43 (PCR) Not detected, Coronavirus HKU1 (PCR) Not detected, Coronavirus 229E (PCR) Not detected, SARS-CoV-2 (PCR) Detected A, Coronavirus NL63 (PCR) Not detected, Human Metapneumovir PCR Not detected, Influenza A (H1) PCR Not detected, Influ A (H1N1/09) PCR Not detected, Influenza A (H3) PCR Not detected, Influenza Type A (PCR) Not detected, Influenza Type B (PCR) Not de
--- NOTE | 2020-09-02 10:48 | HMH.PHAINT ---
HOME MEDICATIONS RECONCILED.
--- NOTE | 2020-09-02 16:41 | PC.NURSE ---
PT IS SITTING UP IN THE CHAIR READING THE BIBLE AT THIS TIME. PT STATES SHE FEELS BETTER TODAY THAN SHE HAS IN DAYS. O2 SATURATION 93-96% ON 2 L NC. PERSISTENT NON-PRODUCTIVE COUGH. PT REQUESTED TYLENOL X2 THIS SHIFT FOR BACK DISCOMFORT. PT TOLERATED GIVING HERSELF A BED BATH THIS SHIFT. PT STATES SHE DOES NOT HAVE MUCH OF AN APPETITE BUT HAS BEEN DRINKING WATER T/O THE SHIFT. LUNG SOUNDS DIMINISHED. ABDOMEN SOFT/NON TENDER WITH ACTIVE BOWEL SOUNDS. VSS. WILL CONTINUE TO MONITOR.
[2020-09-03] VITALS (8 sets, daily range): BP systolic 132–182; BP diastolic 79–97; PULSE 55–78; RESP 16–20; TEMP 35.1–36.8; O2SAT 91–95; BMI 31.6
--- NOTE | 2020-09-03 03:59 | PC.NURSE ---
Pt is A&O x4. Lung sounds diminished t/o. Pt continues to tolerate 2L NC w/ o2 sats between 90-92%. Pt continues to have a dry, nonproductive cough-no sputum sample has been collected this shift. Active bowel sounds in all 4 quads, no BM noted. 22g PIV in rt hand remains patent and continues to infuse NS @ 100 ml/hr. No other acute changes or concerns at this time. Will continue to monitor.
[2020-09-03 06:04] LABS: Chloride 108 mmol/L (98-107); Potassium 3.9 mmoL/L (3.5-5.1); Sodium 141 mmol/L (136-145)
[2020-09-03 06:05] LABS: Basophils % 0.4 % (0.1-2.0); Hematocrit 37.6 % (37.0-47.0); Lymphocytes % 24.5 % (10-50); Mean Corpuscular Hemoglobin 26.6 pg (27.0-31.2); Mean Corpuscular Volume 83.1 fl (81-99); Mean Platelet Volume 8.4 fl (7.4-10.4); Monocytes # 0.3 K/mm3 (0.1-1.0); Neutrophils # 2.8 K/mm3 (1.8-7.8); Platelet Count 226 K/mm3 (142-424); Red Blood Count 4.52 M/mm3 (4.20-5.40); Red Cell Distribution Width 14.4 % (11.5-17.5); White Blood Count 4.2 K/mm3 (4.8-10.8)
[2020-09-03 06:07] LABS: Alanine Aminotransferase 30 U/L (12-78); Albumin Level 3.7 g/dl (3.5-5.0); Albumin/Globulin Ratio 1.2 (1.1-1.8); Alkaline Phosphatase 68 U/L (38-126); Anion Gap 9.9 mEq/L (5-15); Aspartate Amino Transferase 36 U/L (14-36); Bilirubin,Total 0.5 mg/dl (0.2-1.3); Blood Urea Nitrogen 18 mg/dl (7-17); Calcium 8.4 mg/dl (8.4-10.2); Carbon Dioxide 27 mmol/L (22.0-30.0); Creatinine Clearance Estimated 179 mL/min (50-200); Estimated Glomerular Filt Rate 126 ml/min (>60); GFR (African American) 152 ML/MIN (>60); Globulin 3.2 g/dL (1.3-3.2); Total Protein,Serum 6.9 g/dl (6.3-8.2)
[2020-09-03 06:08] LABS: Glucose 116 mg/dl (74-100)
--- NOTE | 2020-09-03 08:36 | HMH.ACPN2 ---
Internal Medicine - PN: Subj *Date: 09/03/20 *Time: 10:46 Interval history: Patient with no new complaints today, still generally feels bad, gets SOB easily. Exam Vital signs and Labs for Last 24 Hours: Temp Pulse Resp BP Pulse Ox 97.7 F 63 18 168/90 H 92 L 09/03/20 03:53 09/03/20 03:53 09/03/20 03:53 09/03/20 03:53 09/03/20 08:00 Laboratory Results - last 24 hr 09/03/20 04:40: WBC 4.2 L D, RBC 4.52, Hgb 12.0 L, Hct 37.6, MCV 83.1, MCH 26.6 L, MCHC 32.0, RDW 14.4, Plt Count 226, MPV 8.4, Neut % (Auto) 68.0, Lymph % (Auto) 24.5, [place] % (Auto) 7.0, Eos % (Auto) 0.0 L, Baso % (Auto) 0.4, Neut # (Auto) 2.8, Lymph # (Auto) 1.0, [place] # (Auto) 0.3, Eos # (Auto) 0.0, Baso # (Auto) 0.0 09/03/20 04:40: Sodium 141, Potassium 3.9, Chloride 108 H, Carbon Dioxide 27, Anion Gap 9.9, BUN 18 H, Creatinine 0.50 L, Estimated Creat Clear 179, Estimated GFR 126, Est GFR ( Amer) 152 D, Glucose 116 H D, Calcium 8.4, Total Bilirubin 0.5, AST 36, ALT 30, Alkaline Phosphatase 68, Total Protein 6.9, Albumin 3.7, Globulin 3.2, Albumin/Globulin Ratio 1.2 Vital Signs - 24 hr 09/02/20 12:00 09/02/20 16:00 09/02/20 20:00 Temperature 98.1 F 98.1 F 96.3 F L Pulse Rate [Radial] 75 64 57 L Respiratory Rate 16 18 16 Blood Pressure [Right Arm] 143/45 H 138/85 141/77 H 02 Sat by Pulse Oximetry 96 97 90 L 09/03/20 00:00 09/03/20 03:53 09/03/20 08:00 Temperature 95.1 F L 97.7 F Pulse Rate [Radial] 66 63 Respiratory Rate 16 18 Blood Pressure [Right Arm] 166/86 H 168/90 H 02 Sat by Pulse Oximetry 92 L 92 L 92 L I & O for Last 24 hours: Intake & Output 08/31/20 09/01/20 09/02/20 09/03/20 23:59 23:59 23:59 23:59 Intake Total 2704 / 2704 Output Total 700 / 1000 300 / 300 Balance 2003 -300 / -300 Weight 205 lb 6.4 oz 209 lb - Constitutional no acute distress - *Routine HEENT Exam Head: Present: normocephalic Eye: Present: EOMI, PERRL ENT: Present: mucous membranes moist - *Routine Neck Exam Present: supple. Absent: lymphadenopathy - *Routine Respiratory Exam Present: crackles (right more than left). Absent: wheezes - *Routine Cardiovascular Exam Present: RRR - *Routine Abdominal Exam Present: soft, normoactive bowel sounds. Absent: tenderness - *Routine Extremities Exam Absent: cyanosis, clubbing, edema - *Routine Skin Exam Present: warm. Absent: rash - *Routine Neurological Exam Present: alert, oriented X3 Assessment and Plan (1) COVID-19 Status: Acute Category: Medical Code(s): U07.1 - COVID-19 (2) Shortness of breath Status: Acute Category: Medical Code(s): R06.02 - Shortness of breath (3) Pneumonia Status: Acute Qualifiers: Pneumonia type: due to unspecified organism Laterality: bilateral Lung location: unspecified part of lung Qualified Code(s): J18.9 - Pneumonia, unspecified organism Category: Medical Code(s): J18.9 - Pneumonia, unspecified organism (4) Hypoxia Status: Acute Category: Medical Code(s): R09.02 - Hypoxemia - Assessment and plan all Dx Assessment and Plan for all problems:: O2 sat is marginal on 2L per NC, will titrate up supplemental as needed, BP has been elevated. Will decrease IVF rate and give one dose of Lasix today.
--- NOTE | 2020-09-03 16:43 | PC.NURSE ---
PT IS RESTING IN BED. PT STATED THIS MORNING SHE WAS NOT FEELING WELL AND WAS NOT ABLE TO GET MUCH SLEEP LAST NIGHT BUT FEELS MUCH BETTER THIS AFTERNOON. PT TOLERATED GIVING HERSELF A BATH THIS AFTERNOON. EATING AND DRINKING FAIR. PT DIURESED 2600 ML'S AFTER IV LASIX. PT STILL HAS A PERSISTENT DRY NON PRODUCTIVE COUGH BUT IT HAS IMPROVED SINCE YESTERDAY. LUNG SOUNDS DIMINISHED WITH CRACKLES IN THE BASES. O2 SATURATION HAS MAINTAINED 91-95% ON 2 L NC. VSS. WILL CONTINUE TO MONITOR.
--- NOTE | 2020-09-04 03:12 | PC.NURSE ---
Pt is A&Ox4. Pt has rested well this shift. Pt was successfully weaned to 1LNC w/ successful results. O2 sat is currently 93%. PT RA obtained this shift, 87%. IS used during awake hours. IS @ best-1750. Pt continues to have a dry, nonproductive cough. Fine crackles heard at bilat bases. Active bowel sounds in all 4 quads. No BM noted this shift. No other acute changes or complaints at this time. Will continue to monitor.
[2020-09-04 03:50] VITALS: BP 158/84; PULSE 50; RESP 16; TEMP 36.6; O2SAT 92
[2020-09-04 04:51] VITALS: BMI 31.5
[2020-09-04 07:05] LABS: Basophils % 0.4 % (0.1-2.0); Hematocrit 38.2 % (37.0-47.0); Hemoglobin 12.1 g/dL (12.2-16.2); Lymphocytes # 1.4 K/mm3 (0.7-4.5); Lymphocytes % 20.8 % (10-50); Mean Corpuscular HGB Conc 31.7 g/dL (31.8-35.4); Mean Corpuscular Hemoglobin 26.6 pg (27.0-31.2); Mean Corpuscular Volume 83.8 fl (81-99); Mean Platelet Volume 8.1 fl (7.4-10.4); Monocytes # 0.5 K/mm3 (0.1-1.0); Neutrophils # 4.8 K/mm3 (1.8-7.8); Neutrophils % 71.8 % (37.0-80.0); Platelet Count 267 K/mm3 (142-424); Red Blood Count 4.57 M/mm3 (4.20-5.40); Red Cell Distribution Width 14.4 % (11.5-17.5); White Blood Count 6.7 K/mm3 (4.8-10.8)
[2020-09-04 07:13] LABS: Chloride 105 mmol/L (98-107); Potassium 3.5 mmoL/L (3.5-5.1); Sodium 141 mmol/L (136-145)
[2020-09-04 07:15] LABS: Alanine Aminotransferase 28 U/L (12-78); Aspartate Amino Transferase 28 U/L (14-36); Blood Urea Nitrogen 24 mg/dl (7-17); Creatinine Clearance Estimated 127 mL/min (50-200); Estimated Glomerular Filt Rate 85 ml/min (>60); GFR (African American) 103 ML/MIN (>60)
[2020-09-04 07:16] LABS: Albumin Level 3.6 g/dl (3.5-5.0); Albumin/Globulin Ratio 1.1 (1.1-1.8); Alkaline Phosphatase 66 U/L (38-126); Anion Gap 8.5 mEq/L (5-15); Bilirubin,Total 0.4 mg/dl (0.2-1.3); Calcium 8.6 mg/dl (8.4-10.2); Carbon Dioxide 31 mmol/L (22.0-30.0); Globulin 3.3 g/dL (1.3-3.2); Glucose 108 mg/dl (74-100); Total Protein,Serum 6.9 g/dl (6.3-8.2)
[2020-09-04 08:00] VITALS: BP 153/75; PULSE 64; RESP 22; TEMP 36.3; O2SAT 93
--- NOTE | 2020-09-04 09:21 | HMH.ACPN2 ---
Internal Medicine - PN: Subj *Date: 09/04/20 *Time: 09:21 Interval history: Patient feels better today, less pain, breathing has improved. She urinated a lot after getting Lasix yesterday. Exam Vital signs and Labs for Last 24 Hours: Temp Pulse Resp BP Pulse Ox 97.4 F L 64 22 153/75 H 93 L 09/04/20 08:00 09/04/20 08:00 09/04/20 08:00 09/04/20 08:00 09/04/20 08:00 Laboratory Results - last 24 hr 09/04/20 06:20: WBC 6.7 D, RBC 4.57, Hgb 12.1 L, Hct 38.2, MCV 83.8, MCH 26.6 L, MCHC 31.7 L, RDW 14.4, Plt Count 267, MPV 8.1, Neut % (Auto) 71.8, Lymph % (Auto) 20.8, [place] % (Auto) 7.0, Eos % (Auto) 0.0 L, Baso % (Auto) 0.4, Neut # (Auto) 4.8, Lymph # (Auto) 1.4, [place] # (Auto) 0.5, Eos # (Auto) 0.0, Baso # (Auto) 0.0 09/04/20 06:20: Sodium 141, Potassium 3.5, Chloride 105, Carbon Dioxide 31 H, Anion Gap 8.5, BUN 24 H D, Creatinine 0.70 D, Estimated Creat Clear 127, Estimated GFR 85, Est GFR ( Amer) 103 D, Glucose 108 H, Calcium 8.6, Total Bilirubin 0.4, AST 28, ALT 28, Alkaline Phosphatase 66, Total Protein 6.9, Albumin 3.6, Globulin 3.3 H, Albumin/Globulin Ratio 1.1 Vital Signs - 24 hr 09/03/20 11:59 09/03/20 16:00 09/03/20 19:58 Temperature 97.8 F 98.2 F 98.2 F Pulse Rate [Radial] 59 L 64 58 L Respiratory Rate 20 20 16 Blood Pressure [Right Arm] 141/86 H 132/85 147/88 H 02 Sat by Pulse Oximetry 91 L 95 93 L 09/03/20 20:00 09/03/20 23:44 09/04/20 03:50 Temperature 97.8 F 97.8 F Pulse Rate [Radial] 55 L 50 L Respiratory Rate 16 16 Blood Pressure [Right Arm] 182/97 H 158/84 H 02 Sat by Pulse Oximetry 94 L 95 92 L 09/04/20 08:00 Temperature 97.4 F L Pulse Rate [Radial] 64 Respiratory Rate 22 Blood Pressure [Right Arm] 153/75 H 02 Sat by Pulse Oximetry 93 L I & O for Last 24 hours: Intake & Output 09/01/20 09/02/20 09/03/20 09/04/20 23:59 23:59 23:59 23:59 Intake Total 2704 / 2704 3338 / 3338 420 / 420 Output Total 700 / 1000 3350 / 3350 100 / 100 Balance 2003 - 320 / 320 Weight 205 lb 6.4 oz 209 lb 208 lb 3 oz - Constitutional no acute distress - *Routine HEENT Exam Head: Present: normocephalic Eye: Present: EOMI, PERRL ENT: Present: mucous membranes moist - *Routine Neck Exam Present: supple. Absent: lymphadenopathy - *Routine Respiratory Exam Present: CTA bilaterally (much better today) - *Routine Cardiovascular Exam Present: RRR - *Routine Abdominal Exam Present: soft, normoactive bowel sounds. Absent: tenderness - *Routine Extremities Exam Absent: cyanosis, clubbing, edema - *Routine Skin Exam Present: warm. Absent: rash - *Routine Neurological Exam Present: alert, oriented X3 Assessment and Plan (1) COVID-19 Status: Acute Category: Medical Code(s): U07.1 - COVID-19 (2) Shortness of breath Status: Acute Category: Medical Code(s): R06.02 - Shortness of breath (3) Pneumonia Status: Acute Qualifiers: Pneumonia type: due to unspecified organism Laterality: bilateral Lung location: unspecified part of lung Qualified Code(s): J18.9 - Pneumonia, unspecified organism Category: Medical Code(s): J18.9 - Pneumonia, unspecified organism (4) Hypoxia Status: Acute Category: Medical Code(s): R09.02 - Hypoxemia - Assessment and plan all Dx Assessment and Plan for all problems:: Will give one more dose of Lasix now and wean O2 off, possible discharge home later today.
[2020-09-04 11:45] VITALS: BP 138/85; PULSE 60; RESP 20; TEMP 36.7; O2SAT 92
--- NOTE | 2020-09-05 13:25 | HMH.DCSUM ---
General - General Admission date:: 09/01/20 Discharge date: 09/04/20 HPI HPI: Patient is a 60 year old female who presented to [facility] ER with a 5 day history of generalized malaise, body aches and shortness of breath. She works in a local [employer] and is Covid tested twice weekly. She states on 08/21 she had minimal nasal congested and tested positive that day. She had no other symptoms of Covid for the next 5 days. She then began having numerous symptoms and came to [facility] on 08/30 and was told she had pneumonia and was treated with Zithromax. She continued to worsen and came back to the ER for another evaluation last night. Hospital Course Hospital Course: The patient's chest x-ray showed resolving bilateral ill-defined perihilar infiltrates. She was admitted for management of hypoxia and pneumonia related to COVID-19 infection. She was started on remdesivir, dexamethasone, and vitamin cocktail. The patient's oxygen was marginal on 2 L per nasal cannula, therefore it was titrated up as needed. Her blood pressure had been elevated as well. Her IV fluids were decreased and she was given a dose of Lasix. By 09/04/2020, the patient felt better and her breathing had improved. She urinated quite a bit after receiving the Lasix. She was given another dose of Lasix and her oxygen was weaned. She was stable to be discharged home and will follow up with Dr. Saucedo. Objective Vital signs: Temp Pulse Resp BP Pulse Ox 98.1 F 60 20 138/85 92 L 09/04/20 11:45 09/04/20 11:45 09/04/20 11:45 09/04/20 11:45 09/04/20 11:45 Narrative: - Constitutional no acute distress - *Routine HEENT Exam Head: Present: normocephalic Eye: Present: EOMI, PERRL ENT: Present: mucous membranes moist - *Routine Neck Exam Present: supple. Absent: lymphadenopathy - *Routine Respiratory Exam Present: crackles (few bibasilar). Absent: respiratory distress, wheezes - *Routine Cardiovascular Exam Present: RRR - *Routine Abdominal Exam Present: soft, normoactive bowel sounds. Absent: tenderness - *Routine Extremities Exam Absent: cyanosis, clubbing, edema - *Routine Skin Exam Present: warm. Absent: rash - *Routine Neurological Exam Present: alert, oriented X3 DS: Diagnosis - Discharge Diagnosis (1) COVID-19 Status: Acute (2) Shortness of breath Status: Acute (3) Pneumonia Status: Acute (4) Hypoxia Status: Acute Discharge Plan - Patient Discharge Instructions ACTIVITY: Continue current activity (Covid isolation) DIET: continue same diet Patient Instructions: Pneumonia-Adult, DI for Hypoxia - Follow up Plan Follow up with: Mikal Saucedo MD [Primary Care Provider] - 09/22/20 10:30 am Disposition: Home, Self-Fci Medications: Home Medications Medication Instructions Recorded Confirmed Type pantoprazole 40 mg tablet,delayed 40 mg PO DAILY #30 tab 03/22/19 09/01/20 History release Triamcinolone Acetonide [Nasacort] 1 spray NS DAILY 04/03/20 09/02/20 History Ascorbic Acid [Vitamin C 500mg 500 mg PO QID #120 tab 09/04/20 Rx tablet] Benzonatate [Benzonatate 200mg Cap] 200 mg PO TIDP PRN #30 cap 09/04/20 Rx Cholecalciferol (Vitamin D3) 50,000 unit PO WEEKLY #4 cap 09/04/20 Rx [Vitamin D3 50,000 unit Cap] Promethazine/Dextromethorphan 473 ml PO Q6HP PRN #473 ml 09/04/20 Rx [Promethazine-Dm Solution] Zinc 50 mg PO BID #60 tab 09/04/20 Rx ondansetron HCL [Zofran 4mg Tab*] 4 mg PO TIDP PRN #20 tab 09/04/20 Rx Prescriptions/Medication Reconciliation: New Cholecalciferol (Vitamin D3) [Vitamin D3 50,000 unit Cap] 50,000 unit PO WEEKLY #4 cap Zinc 50 mg PO BID #60 tab Ascorbic Acid [Vitamin C 500mg tablet] 500 mg PO QID #120 tab ondansetron HCL [Zofran 4mg Tab*] 4 mg PO TIDP PRN #20 tab PRN Reason: Nausea Benzonatate [Benzonatate 200mg Cap] 200 mg PO TIDP PRN #30 cap PRN Reason: Cough Promethazine/Dextromethorphan [Pr
== END 2020-09-04 16:05 | disposition home or self-care (01) | DRG 177 ==
LOC: ER 19:15 → ICU 09-02 08:12
PROVIDERS: Admitting Provider Family Medicine; Emergency Provider Family Medicine; PCP Family Medicine; Visit Provider Family Medicine
DX: U07.1 COVID-19 (principal); J12.89 Other viral pneumonia; Z79.899 Other long term (current) drug therapy
CPT/HCPCS: 36415; 71045; 80048; 80053; 84484; 85025; 86328; 87581; 87633; 87798; 99284

== ENCOUNTER → 2020-11-22 07:55 | Outpatient (CLI) | payer OTHER, SELFPAY ==
--- NOTE | 2020-11-22 08:00 | US_ITS ---
PROCEDURE: US ABDOMEN LIMITED CLINICAL INDICATION: ABD PAIN Right-sided abdominal pain COMPARISON: US ABDLM US abdomen limited from 10/21/[address] abdomen wo/w con from 01/30/2018 FINDINGS: PANCREAS: Unremarkable. No obvious mass or abnormal fluid collection. No ductal dilatation LIVER: No focal liver lesions demonstrated. Homogeneous echogenicity. No intrahepatic biliary ductal dilatation evident. There is appropriate direction of blood flow within a non dilated portal vein. Previously noted a colic liver nodule is not demonstrated on today's exam in may be better evaluated with MRI or CT. RIGHT KIDNEY: Unremarkable. Normal size and echogenicity. No hydronephrosis GALLBLADDER: No gallstones, gallbladder wall thickening, pericholecystic fluid, or biliary dilatation. IMPRESSION: Unremarkable limited abdominal ultrasound as detailed above disc Dictated by: Chaz Ramos MD 11/22/2020 18:42 Chaz Ramos MD in [place] 11/22/2020 18:42
== END ==
PROVIDERS: PCP Family Medicine; Visit Provider Family Medicine
DX: R10.11 Right upper quadrant pain (principal)
CPT/HCPCS: 76705

== ENCOUNTER → 2021-03-14 10:36 | Outpatient (CLI) | payer OTHER, SELFPAY ==
--- NOTE | 2021-03-14 10:37 | MM_ITS ---
PROCEDURE INFORMATION: Exam: MG Screening 3D Mammography Exam date and time: 03/14/2021 10:37 AM Age: 60 years old Clinical indication: Encounter for screening mammogram for malignant neoplasm of breast TECHNIQUE: Imaging protocol: Screening tomosynthesis and 2D mammography including computer-aided detection (CAD) when performed. COMPARISON: 1. MG DMDXUAVL DIG MAMM-DX UNI A/VWS-LT W/CAD 04/15/2017 1:12 PM 2. MG DMSB DIG MAMM-SCREEN KWAME W/CAD 04/02/2017 4:02 PM FINDINGS: MAMMOGRAPHY: Breast composition: The breast tissue is heterogeneously dense, which may obscure small masses. Mass: None. Architectural distortion: None. Calcifications: No suspicious calcifications. Asymmetric density: None. Skin thickening: None. Axillary adenopathy: None. IMPRESSION: No mammographic evidence of malignancy. Annual screening is recommended unless otherwise clinically indicated. ASSESSMENT: BI-RADS Category 1: Negative
== END ==
PROVIDERS: PCP Family Medicine; Visit Provider Family Medicine
DX: Z12.31 Encounter for screening mammogram for malignant neoplasm of breast (principal)
CPT/HCPCS: 77063; 77067

== ENCOUNTER → 2021-04-10 12:21 | Outpatient (CLI) | payer OTHER, SELFPAY ==
--- NOTE | 2021-04-10 12:28 | XR_ITS ---
PROCEDURE: XR KNEE RT 3V CLINICAL INDICATION: ACUTE PAIN , EFFUSION COMPARISON: CR KNEE3L KNEE-3 VIEWS-LT from 01/09/2015 FINDINGS: No fracture or dislocation. No lytic or blastic change. There is normal mineralization. Mild osteoarthritis of the medial and lateral compartment with moderate osteoarthritic changes of the patellofemoral joint. Bony spurring is noted along the superior aspect of the patella with a well-circumscribed lucency at the base of the osteophyte in this region on the AP views which may be due to an artifact. There is a small suprapatellar effusion. Other findings:None. IMPRESSION: Osteoarthritic changes with small knee joint effusion Dictated by: Chaz Ramos MD 04/10/2021 13:05 Chaz Ramos MD in [place] 04/10/2021 13:05
== END ==
PROVIDERS: PCP Family Medicine; Visit Provider Family Medicine
DX: M25.561 Pain in right knee (principal); M25.461 Effusion, right knee
CPT/HCPCS: 73562

== ENCOUNTER 2021-08-09 17:37 | Emergency (ER) | payer OTHER, SELFPAY ==
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
[2021-08-09 18:10] VITALS: BP 187/86; PULSE 86; RESP 18; TEMP 36.8; O2SAT 98; BMI 32.3
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
[2021-08-09 18:57] VITALS: BP 168/86; PULSE 74; RESP 20; TEMP 36.8; O2SAT 96
== END 2021-08-09 19:10 | disposition home or self-care (01) ==
PROVIDERS: Emergency Provider Emergency Medicine; PCP Family Medicine
DX: S62.101A Fracture of unspecified carpal bone, right wrist, initial encounter for closed fracture (principal); V47.5XXA Car driver injured in collision with fixed or stationary object in traffic accident, initial encounter; Y92.488 Other paved roadways as the place of occurrence of the external cause; K21.9 Gastro-esophageal reflux disease without esophagitis
CPT/HCPCS: 29125; 73030; 73120; 99283

== ENCOUNTER → 2021-08-14 13:41 | Outpatient (CLI) | payer OTHER, SELFPAY ==
--- NOTE | 2021-08-14 13:46 | XR_ITS ---
PROCEDURE: XR WRIST RT MIN 3V CLINICAL INDICATION: evaluate for fracture COMPARISON: CR XR WRIST LT MIN 3V from 05/25/2020 FINDINGS: No fracture or dislocation. No lytic or blastic change. There is normal mineralization. Faint densities are present anterior to the radiocarpal joint on the lateral view and along the lateral aspect of the distal radius and along the proximal and radial aspect of the 1st metacarpal and along the ulnar aspect of the triquetrum. These could be related to areas of dystrophic calcification or even foreign bodies. Please correlate with clinical parameters. Other findings:None. IMPRESSION: No acute fracture. Scattered small calcific densities about the wrist as described above. Dictated by: Chaz Ramos MD 08/14/2021 15:21 Chaz Ramos MD in [place] 08/14/2021 15:21
== END ==
PROVIDERS: PCP Family Medicine; Visit Provider Orthopaedic Surgery
DX: S69.91XA Unspecified injury of right wrist, hand and finger(s), initial encounter (principal)
CPT/HCPCS: 73110

== ENCOUNTER → 2021-08-21 13:03 | Outpatient (CLI) | payer OTHER, SELFPAY ==
--- NOTE | 2021-08-21 13:08 | XR_ITS ---
PROCEDURE: XR WRIST RT W SCAPHOID CLINICAL INDICATION: right wrist injury COMPARISON: CR XR WRIST LT MIN 3V from 05/25/2020 CR XR WRIST RT MIN 3V from 08/14/2021 FINDINGS: No fracture or dislocation. No lytic or blastic change. There is normal mineralization. The joint spaces are well-preserved. No significant degenerative/arthritic changes. No erosive changes evident. Other findings:Small area of exostosis is present along the lateral aspect of the scaphoid nonspecific and not significantly changed. Faint density noted along the anterior aspect of the radial carpal region which could represent a foreign body or dystrophic calcification. IMPRESSION: No acute fracture Faint density noted along the anterior aspect of the radial carpal region which could represent a foreign body or dystrophic calcification Dictated by: Chaz Ramos MD 08/21/2021 15:48 Chaz Ramos MD in [place] 08/21/2021 15:48
== END ==
PROVIDERS: PCP Family Medicine; Visit Provider Orthopaedic Surgery
DX: M25.531 Pain in right wrist (principal)
CPT/HCPCS: 73110

== ENCOUNTER 2022-01-04 14:00 | Outpatient (RCR) | payer OTHER, SELFPAY | END 2022-01-04 14:05 | disposition home or self-care (01) | LOC: PT 14:00 | PROVIDERS: Visit Provider Orthopaedic Surgery | DX: M16.12 Unilateral primary osteoarthritis, left hip (principal) | CPT/HCPCS: 97010; 97014; 97110; 97163; G0283 ==

== ENCOUNTER 2022-06-26 14:00 | Outpatient (RCR) | payer OTHER, SELFPAY | END 2022-06-26 15:00 | disposition home or self-care (01) | LOC: OT 14:00 | PROVIDERS: Visit Provider Physician Assistant Medical | DX: S46.011D Strain of muscle(s) and tendon(s) of the rotator cuff of right shoulder, subsequent encounter (principal) | CPT/HCPCS: 97010; 97014; 97035; 97110; 97140; 97164; 97165; 97530; G0283 ==

== ENCOUNTER → 2023-03-21 15:41 | Outpatient (CLI) | payer OTHER, SELFPAY ==
--- NOTE | 2023-03-21 15:45 | MM_ITS ---
PROCEDURE INFORMATION: Exam: MG Bilateral Screening 3D Mammography Exam date and time: 03/21/2023 3:35 PM Age: 63 years old Clinical indication: Screening examination; Family history of breast cancer in sister and in aunt TECHNIQUE: Imaging protocol: Bilateral Screening tomosynthesis and 2D mammography including computer-aided detection (CAD) when performed. COMPARISON: 1. MG MM DIG SCREENING MAMM BI W/CAD 03/14/2021 10:40 AM 2. MG DMDXUAVL DIG MAMM-DX UNI A/VWS-LT W/CAD 04/15/2017 1:12 PM FINDINGS: MAMMOGRAPHY: Breast composition: There are scattered areas of fibroglandular density. Mass: None. Architectural distortion: None. Calcifications: No suspicious calcifications. Asymmetric density: None. Skin thickening: None. Axillary adenopathy: None. IMPRESSION: No mammographic evidence of malignancy. Annual screening is recommended unless otherwise clinically indicated. ASSESSMENT: BI-RADS Category 1: Negative
== END ==
PROVIDERS: PCP Family Medicine; Visit Provider Family Medicine
DX: Z12.31 Encounter for screening mammogram for malignant neoplasm of breast (principal)
CPT/HCPCS: 77063; 77067

== ENCOUNTER 2024-06-07 12:49 | Outpatient (CLI) | payer OTHER, SELFPAY ==
--- NOTE | 2024-06-07 12:52 | MM_ITS ---
PROCEDURE INFORMATION: Exam: MG Bilateral Screening 3D Mammography Exam date and time: 06/07/2024 12:47 PM Age: 64 years old Clinical indication: Screening examination TECHNIQUE: Imaging protocol: Bilateral Screening tomosynthesis and 2D mammography including computer-aided detection (CAD) when performed. COMPARISON: 1. MG MM DIG SCREENING MAMM BI W/CAD 03/21/2023 3:35 PM 2. MG MM DIG SCREENING MAMM BI W/CAD 03/14/2021 10:40 AM FINDINGS: MAMMOGRAPHY: Breast composition: There are scattered areas of fibroglandular density. Mass: None. Architectural distortion: None. Calcifications: No suspicious calcifications. Asymmetric density: None. Skin thickening: None. Axillary adenopathy: None. IMPRESSION: No mammographic evidence of malignancy. Annual screening is recommended unless otherwise clinically indicated. ASSESSMENT: BI-RADS Category 1: Negative.
== END 2024-06-07 23:59 | disposition home or self-care (01) ==
LOC: RAD 12:49
PROVIDERS: PCP Family Medicine; Visit Provider Family Medicine
DX: Z12.31 Encounter for screening mammogram for malignant neoplasm of breast (principal)
CPT/HCPCS: 77063; 77067

== ENCOUNTER 2024-07-05 14:30 | Outpatient (CLI) | payer OTHER, SELFPAY ==
[2024-07-05 14:56] LABS: Basophils % 0.4 % (0.1-2.0); Eosinophils # 0.4 K/mm3 (0.0-0.4); Eosinophils % 4.3 % (0.1-12.0); Hematocrit 41.9 % (37.0-47.0); Hemoglobin 13.7 g/dL (12.2-16.2); Lymphocytes # 2.4 K/mm3 (0.7-4.5); Lymphocytes % 26.5 % (10-50); Mean Corpuscular HGB Conc 32.6 g/dL (31.8-35.4); Mean Corpuscular Hemoglobin 28.8 pg (27.0-31.2); Mean Corpuscular Volume 88.3 fl (81-99); Mean Platelet Volume 7.9 fl (7.4-10.4); Monocytes # 0.4 K/mm3 (0.1-1.0); Monocytes % 4.8 % (1.7-9.3); Neutrophils # 5.8 K/mm3 (1.8-7.8); Neutrophils % 64.1 % (37.0-80.0); Platelet Count 232 K/mm3 (142-424); Red Blood Count 4.75 M/mm3 (4.20-5.40); Red Cell Distribution Width 14.1 % (11.5-17.5)
== END 2024-07-05 23:59 | disposition home or self-care (01) ==
LOC: LAB 14:31
PROVIDERS: PCP Family Medicine; Visit Provider Family Medicine
DX: J06.9 Acute upper respiratory infection, unspecified (principal)
CPT/HCPCS: 85025

== ENCOUNTER 2024-11-30 11:24 | Outpatient (CLI) | payer OTHER, SELFPAY ==
--- NOTE | 2024-11-30 11:27 | XR_ITS ---
FINAL REPORT CLINICAL HISTORY: PERSISTANT COUGH COMPARISON: None FINDINGS: PA and lateral views of the chest are obtained. There is no prior exam for comparison. The cardiac and mediastinal silhouettes are within normal limits. The lungs are clear. There is no pleural effusion, pneumothorax, or acute osseous abnormality. IMPRESSION: No radiographic evidence of acute cardiac or pulmonary disease. Reviewed, Interpreted and Dictated by Amairani Villa MD Transcribed by Nadya Pizarro Authenticated and [facility]
== END 2024-11-30 23:59 | disposition home or self-care (01) ==
LOC: RAD 11:24
PROVIDERS: PCP Family Medicine; Visit Provider Family Medicine
DX: R05.3 Chronic cough (principal)
CPT/HCPCS: 71046

== ENCOUNTER 2025-06-13 10:57 | Day surgery (SDC) | payer MEDICARE, SELFPAY ==
[2025-06-07 14:39] VITALS: BMI 33.2
--- NOTE | 2025-06-09 17:59 | EXP.HP ---
History of Present Illness *Admission Date: 06/13/25 *History of present illness: Mrs. Weller is a 65-year-old female who is here for screening/surveillance colonoscopy. She does have a personal history of adenomatous colon polyps. She did have a colonoscopy 14 to 15 years ago at which time 2 polyps (tubular adenomas x 2) were removed. Her last colonoscopy with me in March 2020 revealed 5 polyps (tubular adenomas x 2/hyperplastic polyps x 3) which were removed. She does state that for paternal aunt had colon cancer in her late 60s. The examination is deemed medically necessary for screening/surveillance colonoscopy. The patient has been seen, interviewed and examined prior to the procedure by both myself and the anesthesia provider. [facility] Disclaimer: The information contained in this section may have been updated after the patient was seen, as this information can be updated by other users. 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 [employer] current occupational exposures/hazards: No caffeine: Yes Have you lived/traveled outside [place] in past 30 days?: No Contact w/someone who lives/traveled outside US past 30 days?: No Exposure to someone with infectious disease in past 14 days?: No Do you have a fever (greater than 100.4 F or 38 C)?: No Have you tested positive for COVID-19?: No Exposed to someone with COVID-19 in past 14 days?: No Do you have a sore throat?: No Do you have a cough?: No Do you have any weakness?: No Do you have any diarrhea?: No Are you experiencing any unusual bleeding?: No Do you have any muscle aches/pain?: No Do you have any abdominal pain?: No Are you experiencing loss of taste or smell?: No Other Medical History Have you received the Flu Vaccine for this season: Yes Have you received the Pneumonia Vaccine: No Review of Systems Review of Systems Review of systems (narrative): Negative *Cardiovascular Comments: Negative *Gastrointestinal Comments: Negative *Genitourinary Comments: Negative *Musculoskeletal Comments: Negative *Neurologic Comments: Negative Meds Home Medications and Allergies Home Medications ?Medication ?Instructions ?Recorded ?Confirmed ?Type pantoprazole 40 mg tablet,delayed 40 mg PO DAILY GERD #30 tabs 03/22/19 06/13/25 History release sodium sul 1.479 gram-potas ch See Rx Instructions PO PER PKG DIR 06/01/25 06/13/25 Rx 0.188 gram-magnes sul 0.225 gram colonscopy #24 tabs tablet (Sutab) irbesartan 150 mg tablet 150 mg PO DAILY 06/07/25 06/13/25 History paroxetine HCl 10 mg tablet 10 mg PO DAILY 06/07/25 06/13/25 History New Prescriptions to Start Prescriptions: Allergies Allergy/AdvReac Type Severity Reaction Status Date / Time No Known Allergies Allergy Verified 06/13/25 11:32 Exam Data for Last 24 hours I & O for Last 24 hours: Intake & Output 06/06/25 06/07/25 06/08/25 06/09/25 23:59 23:59 23:59 23:59 Weight 212 lb *Routine HEENT Exam Head: Present normocephalic Eye: Present EOMI and PERRL ENT: Present mucous membranes moist *Routine Neck Exam Neck: Present supple *Routine Respiratory Exam Respiratory: Present CTA bilaterally *Routine Cardiovascular Exam Cardiovascular: Present RRR *Routine Abdominal Exam Abdominal: Present soft and normoactive bowel sounds; Absent tenderness *Routine Rectal Exam Rectal:: deferred *Routine Genitalia Exam Genitalia:: deferred *Routine Extremities Exam Extremities: Absent cyanosis, clubbing or edema *Routine Skin Exam Skin: Present warm; Absent rash *Routine Neurological Exam Neurological: Present alert and oriented X3 Assessment and Plan *Assessment and plan (1) Personal history of adenomatous and serrated colon polyps: Status: Acute Category: Medical Code(s): Z86.0101 - Personal history of adenomatous and serrated colon polyps (2) Screening for colon cancer: Status: Acute Category: Medical Code(s): Z12.11 - Encounter for screening for malignant neoplasm of colon Plan A/P: 1. Personal history of adenomatous colon polyps is the preprocedural diagnosis. The patient will be anesthetized/sedated using MAC sedation. The patient has been seen and examined. Cardiac and lung assessment prior to the examination is stable. Proceed with planned screening/surveillance colonoscopy.
--- NOTE | 2025-06-13 06:50 | HMH.PROCNOTE ---
[facility] Procedure Note Date: 06/13/25 Time: 12:39 Procedure Note:: Colonoscopy Procedure Report: Colonoscopy with cold snare polypectomy Endoscopist: Rashad Grier II, MD Referring physician: Mikal Saucedo MD Date of Procedure: June 13, 2025 Equipment: Olympus [id number] adult colonoscope Sedation: MAC sedation Indication: Mrs. Weller is a 65-year-old female who is here for screening/surveillance colonoscopy. She does have a personal history of adenomatous colon polyps. She did have a colonoscopy 14 to 15 years ago at which time 2 polyps (tubular adenomas x 2) were removed. Her last colonoscopy with ks in March 2020 revealed 5 polyps (tubular adenomas x 2/hyperplastic polyps x 3) which were removed. She does state that for paternal aunt had colon cancer in her late 60s. The examination is deemed medically necessary for screening/surveillance colonoscopy. Procedure: Prior to the procedure, a history and physical exam was performed, and patient's medications and allergies were reviewed. The risks, benefits and alternatives of the sedation and procedure were discussed with the patient. All questions were answered and informed consent was obtained. The patient was brought to the procedure room. Patient identification and proposed procedure were verified by the physician and the nurse. The patient was placed in a left lateral decubitus position and the scope was passed under direct vision. Throughout the procedure, the patient's blood pressure, pulse, and oxygen saturations were monitored continuously. The colonoscopy was accomplished without difficulty. The patient tolerated the procedure well. Findings: On digital rectal examination there was normal rectal tone. There were no external hemorrhoids. The colonoscope was introduced through the anal canal to the rectum and advanced to the cecum. The ileocecal valve and appendiceal orifice were identified. The scope was advanced a short distance into the ileum which appeared grossly normal. The scope was then withdrawn into the colon. There were 6 diminutive colon polyps (ascending x 4 (3, 3, 3 and 4 mm), transverse x 1 (4 mm) and rectal x 1 (3 mm)). All of these were removed via cold snare polypectomy. The remaining cecum, ascending and transverse colon and mucosa were grossly normal. There were scattered diverticuli throughout the descending and sigmoid colon (LEFT colon). The rectum itself was normal. Upon retroflexion within the rectum there were grade 1-2 internal hemorrhoids. The preparation was excellent throughout with [place] Preparation Score of 9. The cecal time was 12 minutes. Impression: 1. Diminutive colonic polyps x 6 2. Left-sided diverticulosis 3. Grade 1-2 internal hemorrhoids Plan: I will follow-up the polyp histology and recommend repeat screening/surveillance colonoscopy again in 3 to 5 years based upon the pathology. I would encourage psyllium bulking fiber supplementation on a long-term daily maintenance basis.
[2025-06-13 11:20] VITALS: BP 156/96; PULSE 66; RESP 16; TEMP 36.1; O2SAT 100; BMI 33.2
[2025-06-13] MEDS: LACTATED RINGERS 1000ML 1,000 ML 50 ML IV (11:32)
--- NOTE | 2025-06-13 11:48 | P.PNANES_ITS ---
[facility] Disclaimer: The information contained in this section may have been updated after the patient was seen, as this information can be updated by other users. 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 [employer] current occupational exposures/hazards: No caffeine: Yes Have you lived/traveled outside [place] in past 30 days?: No Contact w/someone who lives/traveled outside [place] past 30 days?: No Exposure to someone with infectious disease in past 14 days?: No Do you have a fever (greater than 100.4 F or 38 C)?: No Have you tested positive for COVID-19?: No Exposed to someone with COVID-19 in past 14 days?: No Do you have a sore throat?: No Do you have a cough?: No Do you have any weakness?: No Do you have any diarrhea?: No Are you experiencing any unusual bleeding?: No Do you have any muscle aches/pain?: No Do you have any abdominal pain?: No Are you experiencing loss of taste or smell?: No [facility] Anesthesia Checklist Patient Identification Patient Identification: Arm Band and Family Structural Data Admitted From: Home Planned Operative Procedure/s: Colonoscopy Consent for Planned Operative Procedure(s) Verified: Yes Verified Documents: Surgical Consent and History and Physical NPO Status Verified Time NPO: 00:00 Additional verifications Patient : No Anesthesia Reactions: No Hx Blood Transfusions: No Blood Transfusion Reaction: No Cephalosporin Allergy: No Previous Colonoscopy: Yes Airway Assessment Mallampati Score:: Class II C-Spine Mobility Assessed: Yes TMJ Mobility Assessed: Yes Dentition: Good Dentition Neurological Assessment Level of Consciousness: Awake, Alert, Appropriate and Follows Commands Hx Seizures: No Numbness or tingling in extremities: No Anesthesia Plan Anesthesia Risk discussed: Yes ASA Class: II Anesthesia Type: MAC
[2025-06-13 12:40] VITALS: BP 122/70; PULSE 77; RESP 18; TEMP 36.1; O2SAT 97
[2025-06-13 12:50] VITALS: BP 133/75; PULSE 66; RESP 18; O2SAT 99
[2025-06-13 13:00] VITALS: BP 136/72; PULSE 62; RESP 18; O2SAT 98
[2025-06-13 13:10] VITALS: BP 125/84; PULSE 65; RESP 16; O2SAT 98
== END 2025-06-13 13:44 | disposition home or self-care (01) ==
PROVIDERS: PCP Family Medicine; Visit Provider Internal Medicine Gastroenterology
PROC: 0DJD8ZZ Inspection of Lower Intestinal Tract, Via Natural or Artificial Opening Endoscopic (ICD-10-PCS; CPT 45378; principal; 2025-06-13 12:30)
DX: Z12.11 Encounter for screening for malignant neoplasm of colon (principal); Z86.0101 Personal history of adenomatous and serrated colon polyps; D12.2 Benign neoplasm of ascending colon; K62.1 Rectal polyp; K57.30 Diverticulosis of large intestine without perforation or abscess without bleeding; K64.1 Second degree hemorrhoids; Z86.0109 Personal history of other colon polyps; Z80.0 Family history of malignant neoplasm of digestive organs; I10 Essential (primary) hypertension; F41.9 Anxiety disorder, unspecified; K21.9 Gastro-esophageal reflux disease without esophagitis
CPT/HCPCS: 45385; J2003; J2704; J7120